=== PATIENT | male | born 1955 | race African-American/Black ===

== ENCOUNTER 2018-05-21 21:04 | Inpatient (IN) ==
[2018-05-22] MEDS ORDERED: ALBUTEROL 2.5 MG/3 ML NEB RESP TX PRN (01:24)
[2018-05-22] MEDS ORDERED: LORazepam 1 MG TABLET PO PRN (02:13)
[2018-05-22 02:20] LABS: INR 0.9; PT Patient Result 10.3 SECS
[2018-05-22 02:29] LABS: Basophils % 0.7 % (0.0-0.8); Eosinophils # 0.1 10*3/uL (0.0-0.87); Hematocrit 25.1 VOL% (42.0-52.0); Hemoglobin 7.6 GM/DL (14.0-18.0); Immature Granulocytes % 4.1 %; Immature Granulocytes Absolute 0.24 #; Lymphocytes # 0.8 10*3/uL (1.4-4.0); Lymphocytes % 13.1 % (21.2-54.2); Mean Corpuscular HGB Conc 30.3 GM/DL (32-36); Mean Corpuscular Hemoglobin 30 PG (27-34); Mean Corpuscular Volume 97.7 FL (87-102); Mean Platelet Volume 10.8 FL (9.6-12.0); Monocytes # 0.7 10*3/uL (0.11-0.8); Monocytes % 11.2 % (1.7-12.7); NRBC # 0.07 10*3/uL; Neutrophils # 4.1 10*3/uL (1.4-7.4); Neutrophils % 69.9 % (38.7-73.9); Platelet Count 324 T/CUMM (130-400); Red Blood Count 2.57 MC/CUMM (3.8-5.5); Red Cell Distribution Width 16.1 % (9.3-17.3); White Blood Count 5.8 T/CUMM (4-12)
[2018-05-22 02:41] LABS: Alanine Aminotransferase 9 U/L (16-61); Albumin 1.4 G/DL (3.4-5.0); Alkaline Phosphatase 73 U/L (45-117); Aspartate Amino Transferase 22 U/L (0-37); Bilirubin,Total < 0.39 MG/DL (0.2-1.0); Blood Urea Nitrogen 78 MG/DL (7-18); Glucose 65 MG/DL (74-106); Osmolality,Calculated 303.1 MOS/KG (273-304); Potassium 5.5 MMOL/L (3.5-5.1); Sodium 142 MMOL/L (136-145); Total Protein 5.7 G/DL (6.4-8.3)
[2018-05-22 02:50] LABS: Calcium 5.7 MG/DL (8.5-10.1)
[2018-05-22 05:24] LABS: Protein/Creatinine Ratio,Urine 7.6 RATIO
[2018-05-22 05:33] LABS: Amorphous Crystals,Urine Occasional /HPF (Few); Apearance,Urine CLOUDY (Clear); Bacteria,Urine Occasional /HPF (Few); Bilirubin,Urine Negative (Negative); Blood, Urine Moderate mg/dL (Negative); Glucose,Urine (UA) Negative (Negative); Hyaline Casts,Urine 3 /LPF (0-3); Ketones,Urine Negative (Negative); Nitrite,Urine Negative (Negative); Protein,Urine >=500 MG/DL; RBC,Urine 9 /HPF (0-4); Squamous Epithelial Cell,Urine Occasional /HPF (0-10); Urine Color Yellow (Yellow); Urine Specific Gravity 1.026 (1.001-1.035); Urine Urobilinogen < 2.0 EU/DL (0.2-1.0); WBC,Urine 8 /HPF (0-6)
[2018-05-22] MEDS: PANTOPRAZOLE 40 MG TABLET PO SCH (08:49)
[2018-05-22] MEDS: FOLIC ACID 1 MG TABLET PO SCH (08:49)
[2018-05-22] MEDS: SODIUM BICARBONATE 650 MG TABLET PO SCH ×3 (08:49→20:38)
[2018-05-22] MEDS: THIAMINE 100 MG TABLET PO SCH (08:49)
[2018-05-22] MEDS: MULTIVITAMIN (CENTRUM) TABLET PO SCH (08:50)
[2018-05-22 13:12] LABS: Microalbum/Creat Ratio Random 3571.4 RATIO (0-30)
[2018-05-22] MEDS ORDERED: hydrALAZINE 20 MG/1 ML VIAL IV ONE (13:50)
[2018-05-22] MEDS: amLODIPine 10 MG TABLET PO SCH (14:52)
[2018-05-22] MEDS: CALCIUM GLUCONATE 2,000 MG in SODIUM CHLORIDE 0.9% 100 ML IV PRN (15:11)
[2018-05-22] MEDS: SIMVASTATIN 20 MG TABLET PO SCH (20:38)
[2018-05-23 07:01] LABS: Hepatitis A Ab IgM Quant 0.21 Index; Hepatitis A Ab IgM Result Negative (Negative); Hepatitis B Core IgM Quant 0.13 Index; Hepatitis B Core IgM Result Negative (Negative); Hepatitis B Surface Ag Quant < 0.10 Index; Hepatitis B Surface Ag Result Negative (Negative); Hepatitis C Virus Ab Quant 0.09 Index; Hepatitis C Virus Ab Result Negative (Negative)
[2018-05-23 09:17] LABS: Basophils % 0.4 % (0.0-0.8); Eosinophils # 0.1 10*3/uL (0.0-0.87); Eosinophils % 0.8 % (0.00-10.9); Hematocrit 22.6 VOL% (42.0-52.0); Immature Granulocytes % 1.1 %; Immature Granulocytes Absolute 0.08 #; Lymphocytes # 0.6 10*3/uL (1.4-4.0); Lymphocytes % 8.6 % (21.2-54.2); Mean Corpuscular Hemoglobin 30 PG (27-34); Mean Platelet Volume 9.9 FL (9.6-12.0); Monocytes # 0.7 10*3/uL (0.11-0.8); Monocytes % 9.1 % (1.7-12.7); NRBC # 0.05 10*3/uL; Platelet Count 293 T/CUMM (130-400); Red Blood Count 2.33 MC/CUMM (3.8-5.5); Red Cell Distribution Width 16.1 % (9.3-17.3); White Blood Count 7.5 T/CUMM (4-12)
[2018-05-23] MEDS: FOLIC ACID 1 MG TABLET PO SCH (09:19)
[2018-05-23] MEDS: MULTIVITAMIN (CENTRUM) TABLET PO SCH (09:19)
[2018-05-23] MEDS: SODIUM BICARBONATE 650 MG TABLET PO SCH ×3 (09:19→22:01)
[2018-05-23] MEDS: PANTOPRAZOLE 40 MG TABLET PO SCH (09:19)
[2018-05-23] MEDS: amLODIPine 10 MG TABLET PO SCH ×2 (09:19)
[2018-05-23] MEDS: THIAMINE 100 MG TABLET PO SCH (09:19)
[2018-05-23] MEDS: ASPIRIN CHEW 81 MG TABLET PO SCH (09:19)
[2018-05-23 09:43] LABS: Alanine Aminotransferase < 9 U/L (16-61); Albumin 1.3 G/DL (3.4-5.0); Alkaline Phosphatase 65 U/L (45-117); Aspartate Amino Transferase 15 U/L (0-37); Bilirubin,Total < 0.39 MG/DL (0.2-1.0); Blood Urea Nitrogen 79 MG/DL (7-18); Glucose 109 MG/DL (74-106); Osmolality,Calculated 307.1 MOS/KG (273-304); Sodium 142 MMOL/L (136-145); Total Protein 5.5 G/DL (6.4-8.3)
[2018-05-23 09:47] LABS: Calcium 5.6 MG/DL (8.5-10.1)
[2018-05-23] MEDS ORDERED: ACETAMINOPHEN 325 MG TABLET PO PRN (12:46)
[2018-05-23] MEDS ORDERED: diphenhydrAMINE CAP 25 MG CAPSULE PO PRN (12:46)
[2018-05-23] MEDS ORDERED: SODIUM CHLORIDE 0.9% 1,000 ML IV PRN ×2 (12:46→17:31)
[2018-05-23] MEDS: ALBUMIN 25% 25 GM in PREMIX 1 EACH IV SCH ×2 (15:52→22:02)
[2018-05-23] MEDS: OCTREOTIDE 100 MCG/ML SYRINGE SUBCUT SCH ×2 (15:53→22:02)
[2018-05-23] MEDS: MIDODRINE 5 MG TABLET PO SCH ×2 (15:53→22:01)
[2018-05-23] MEDS ORDERED: FUROSEMIDE 40 MG/4 ML VIAL IV SCH (16:00)
[2018-05-23] MEDS: SIMVASTATIN 20 MG TABLET PO SCH (22:02)
[2018-05-24 06:06] LABS: Basophils % 0.3 % (0.0-0.8); Eosinophils % 0.3 % (0.00-10.9); Hematocrit 30.1 VOL% (42.0-52.0); Hemoglobin 9.3 GM/DL (14.0-18.0); Immature Granulocytes % 1.7 %; Immature Granulocytes Absolute 0.11 #; Lymphocytes # 0.9 10*3/uL (1.4-4.0); Lymphocytes % 13.4 % (21.2-54.2); Mean Corpuscular HGB Conc 30.9 GM/DL (32-36); Mean Corpuscular Hemoglobin 29 PG (27-34); Mean Corpuscular Volume 94.1 FL (87-102); Mean Platelet Volume 10.7 FL (9.6-12.0); Monocytes # 0.7 10*3/uL (0.11-0.8); Monocytes % 10.1 % (1.7-12.7); NRBC # 0.06 10*3/uL; Neutrophils # 4.9 10*3/uL (1.4-7.4); Neutrophils % 74.2 % (38.7-73.9); Platelet Count 290 T/CUMM (130-400); Red Cell Distribution Width 16.1 % (9.3-17.3); White Blood Count 6.6 T/CUMM (4-12)
[2018-05-24 06:39] LABS: Osmolality,Calculated 306.1 MOS/KG (273-304); Potassium 5.4 MMOL/L (3.5-5.1)
[2018-05-24 06:42] LABS: Calcium 5.5 MG/DL (8.5-10.1)
[2018-05-24] MEDS: ALBUMIN 25% 25 GM in PREMIX 1 EACH IV SCH ×3 (07:37→22:15)
[2018-05-24] MEDS: OCTREOTIDE 100 MCG/ML SYRINGE SUBCUT SCH ×3 (11:09→22:14)
[2018-05-24] MEDS: amLODIPine 10 MG TABLET PO SCH ×2 (11:10)
[2018-05-24] MEDS: SODIUM BICARBONATE 650 MG TABLET PO SCH ×3 (11:10→22:14)
[2018-05-24] MEDS: MULTIVITAMIN (CENTRUM) TABLET PO SCH (11:10)
[2018-05-24] MEDS: PANTOPRAZOLE 40 MG TABLET PO SCH (11:10)
[2018-05-24] MEDS: FOLIC ACID 1 MG TABLET PO SCH (11:10)
[2018-05-24] MEDS: ASPIRIN CHEW 81 MG TABLET PO SCH (11:10)
[2018-05-24] MEDS: MIDODRINE 5 MG TABLET PO SCH ×3 (11:10→22:15)
[2018-05-24] MEDS: THIAMINE 100 MG TABLET PO SCH (11:10)
[2018-05-24] MEDS: SIMVASTATIN 20 MG TABLET PO SCH (22:14)
[2018-05-25 04:55] LABS: Basophils % 0.3 % (0.0-0.8); Eosinophils # 0.1 10*3/uL (0.0-0.87); Eosinophils % 0.6 % (0.00-10.9); Hematocrit 26.1 VOL% (42.0-52.0); Immature Granulocytes % 1.6 %; Immature Granulocytes Absolute 0.15 #; Lymphocytes # 0.8 10*3/uL (1.4-4.0); Lymphocytes % 8.7 % (21.2-54.2); Mean Corpuscular HGB Conc 30.7 GM/DL (32-36); Mean Corpuscular Hemoglobin 29 PG (27-34); Mean Corpuscular Volume 94.6 FL (87-102); Mean Platelet Volume 11.1 FL (9.6-12.0); Monocytes # 0.8 10*3/uL (0.11-0.8); Monocytes % 8.4 % (1.7-12.7); NRBC # 0.08 10*3/uL; Neutrophils # 7.4 10*3/uL (1.4-7.4); Neutrophils % 80.4 % (38.7-73.9); Platelet Count 259 T/CUMM (130-400); Red Blood Count 2.76 MC/CUMM (3.8-5.5); Red Cell Distribution Width 16.8 % (9.3-17.3); White Blood Count 9.2 T/CUMM (4-12)
[2018-05-25] MEDS: ALBUMIN 25% 25 GM in PREMIX 1 EACH IV SCH ×2 (07:25→13:47)
[2018-05-25] MEDS ORDERED: SODIUM POLYSTYRENE SULFATE 15 GM/60 ML BOTTLE PO STA (08:12)
[2018-05-25] MEDS ORDERED: NICOTINE 21 MG/24 HR PATCH TRANSDERM PRN (08:14)
[2018-05-25] MEDS: MIDODRINE 5 MG TABLET PO SCH ×3 (08:53→22:32)
[2018-05-25] MEDS: ASPIRIN CHEW 81 MG TABLET PO SCH (08:53)
[2018-05-25] MEDS: SODIUM BICARBONATE 650 MG TABLET PO SCH ×3 (08:53→22:32)
[2018-05-25] MEDS: THIAMINE 100 MG TABLET PO SCH (08:54)
[2018-05-25] MEDS: FOLIC ACID 1 MG TABLET PO SCH (08:54)
[2018-05-25] MEDS: PANTOPRAZOLE 40 MG TABLET PO SCH (08:54)
[2018-05-25] MEDS: amLODIPine 10 MG TABLET PO SCH (08:54)
[2018-05-25] MEDS: OCTREOTIDE 100 MCG/ML SYRINGE SUBCUT SCH ×3 (08:54→22:32)
[2018-05-25] MEDS: MULTIVITAMIN (CENTRUM) TABLET PO SCH (08:54)
[2018-05-25] MEDS ORDERED: CALCIUM GLUCONATE 2,000 MG in SODIUM CHLORIDE 0.9% 100 ML IV ONE ×2 (09:00→17:00)
[2018-05-25 13:28] LABS: Osmolality,Calculated 311.8 MOS/KG (273-304); Potassium 4.8 MMOL/L (3.5-5.1)
[2018-05-25 13:33] LABS: Calcium 5.3 MG/DL (8.5-10.1)
[2018-05-25 16:26] LABS: % Iron Saturation 35.2 % (18-50)
[2018-05-25] MEDS: SIMVASTATIN 20 MG TABLET PO SCH (22:33)
[2018-05-26] MEDS: ALBUMIN 25% 25 GM in PREMIX 1 EACH IV SCH ×2 (00:39→05:21)
[2018-05-26 05:16] LABS: Basophils % 0.4 % (0.0-0.8); Eosinophils # 0.1 10*3/uL (0.0-0.87); Eosinophils % 0.6 % (0.00-10.9); Hematocrit 24.6 VOL% (42.0-52.0); Hemoglobin 7.6 GM/DL (14.0-18.0); Immature Granulocytes % 1.8 %; Immature Granulocytes Absolute 0.17 #; Lymphocytes # 0.6 10*3/uL (1.4-4.0); Lymphocytes % 6.5 % (21.2-54.2); Mean Corpuscular HGB Conc 30.9 GM/DL (32-36); Mean Corpuscular Hemoglobin 29 PG (27-34); Mean Corpuscular Volume 94.6 FL (87-102); Mean Platelet Volume 11.2 FL (9.6-12.0); Monocytes % 10.3 % (1.7-12.7); NRBC # 0.07 10*3/uL; Neutrophils # 7.7 10*3/uL (1.4-7.4); Neutrophils % 80.4 % (38.7-73.9); Platelet Count 258 T/CUMM (130-400); Red Cell Distribution Width 17.1 % (9.3-17.3); White Blood Count 9.6 T/CUMM (4-12)
[2018-05-26 05:44] LABS: Osmolality,Calculated 310.7 MOS/KG (273-304); Potassium 4.8 MMOL/L (3.5-5.1)
[2018-05-26 05:48] LABS: Calcium 5.5 MG/DL (8.5-10.1)
[2018-05-26] MEDS ORDERED: LIDOCAINE 2% 5 ML VIAL ONE (08:03)
[2018-05-26] MEDS ORDERED: PROPOFOL 200 MG/20 ML VIAL IV ONE (08:03)
[2018-05-26] MEDS ORDERED: SODIUM CHLORIDE 0.9% 1,000 ML IV PRN (09:03)
[2018-05-26] MEDS: amLODIPine 10 MG TABLET PO SCH (09:05)
[2018-05-26] MEDS ORDERED: CALCIUM GLUCONATE 2,000 MG in SODIUM CHLORIDE 0.9% 100 ML IV ONE (10:00)
[2018-05-26] MEDS: BISACODYL 5 MG TABLET PO SCH ×2 (10:40→16:03)
[2018-05-26] MEDS: ASPIRIN CHEW 81 MG TABLET PO SCH (10:41)
[2018-05-26] MEDS: PANTOPRAZOLE 40 MG TABLET PO SCH ×2 (10:41→22:03)
[2018-05-26] MEDS: SODIUM BICARBONATE 650 MG TABLET PO SCH ×3 (10:41→22:02)
[2018-05-26] MEDS: THIAMINE 100 MG TABLET PO SCH (10:41)
[2018-05-26] MEDS: MULTIVITAMIN (CENTRUM) TABLET PO SCH (10:41)
[2018-05-26] MEDS: CALCIUM (CARBONATE)/VITAMIN D 500 MG-200 UNIT TABLET PO SCH ×2 (10:41→22:02)
[2018-05-26] MEDS: FOLIC ACID 1 MG TABLET PO SCH (10:42)
[2018-05-26 14:15] LABS: Glomerular Basement Membrane A < 0.2 U; Myeloperoxidase Antibody < 0.2 U
[2018-05-26] MEDS: FUROSEMIDE 40 MG/4 ML VIAL IV SCH (16:02)
[2018-05-26] MEDS ORDERED: MAGNESIUM SULF RIDER 2 GM in PREMIX 1 EACH IV ONE (17:07)
[2018-05-26] MEDS ORDERED: POLYETHYLENE GLYCOL 3350/ELECTROLYTES 4,000 ML BOTTLE PO ONE (18:00)
[2018-05-26 20:06] LABS: Hematocrit 32.7 VOL% (42.0-52.0); Hemoglobin 10.4 GM/DL (14.0-18.0)
[2018-05-26] MEDS ORDERED: MAGNESIUM CITRATE 300 ML BOTTLE PO ONE (21:00)
[2018-05-26] MEDS: SIMVASTATIN 20 MG TABLET PO SCH (22:03)
[2018-05-27] MEDS: BISACODYL 5 MG TABLET PO SCH (00:39)
[2018-05-27 05:43] LABS: Basophils # 0.1 10*3/uL (0.0-0.2); Basophils % 0.5 % (0.0-0.8); Eosinophils # 0.1 10*3/uL (0.0-0.87); Eosinophils % 0.9 % (0.00-10.9); Hematocrit 32.3 VOL% (42.0-52.0); Hemoglobin 10.2 GM/DL (14.0-18.0); Immature Granulocytes % 1.4 %; Immature Granulocytes Absolute 0.14 #; Lymphocytes # 0.6 10*3/uL (1.4-4.0); Lymphocytes % 6.2 % (21.2-54.2); Mean Corpuscular HGB Conc 31.6 GM/DL (32-36); Mean Corpuscular Hemoglobin 29 PG (27-34); Mean Corpuscular Volume 91.2 FL (87-102); Mean Platelet Volume 11.3 FL (9.6-12.0); Monocytes # 1.1 10*3/uL (0.11-0.8); Monocytes % 11.5 % (1.7-12.7); NRBC # 0.05 10*3/uL; Neutrophils # 7.7 10*3/uL (1.4-7.4); Neutrophils % 79.5 % (38.7-73.9); Platelet Count 288 T/CUMM (130-400); Red Blood Count 3.54 MC/CUMM (3.8-5.5); Red Cell Distribution Width 17.6 % (9.3-17.3); White Blood Count 9.7 T/CUMM (4-12)
[2018-05-27 06:06] LABS: Osmolality,Calculated 308.7 MOS/KG (273-304); Potassium 4.3 MMOL/L (3.5-5.1)
[2018-05-27 06:13] LABS: Calcium 5.6 MG/DL (8.5-10.1)
[2018-05-27] MEDS ORDERED: MAGNESIUM SULF RIDER 2 GM in PREMIX 1 EACH IV ONE (08:27)
[2018-05-27] MEDS: CALCIUM GLUCONATE 2,000 MG in SODIUM CHLORIDE 0.9% 100 ML IV PRN (09:01)
[2018-05-27] MEDS: FUROSEMIDE 40 MG/4 ML VIAL IV SCH ×2 (09:39→17:28)
[2018-05-27] MEDS ORDERED: PROPOFOL 200 MG/20 ML VIAL IV ONE (10:00)
[2018-05-27] MEDS ORDERED: LIDOCAINE 100 MG/5 ML SYRINGE ONE (10:00)
[2018-05-27] MEDS: CALCIUM (CARBONATE)/VITAMIN D 500 MG-200 UNIT TABLET PO SCH ×2 (15:06→21:31)
[2018-05-27] MEDS: FOLIC ACID 1 MG TABLET PO SCH (15:06)
[2018-05-27] MEDS: MULTIVITAMIN (CENTRUM) TABLET PO SCH (15:06)
[2018-05-27] MEDS: amLODIPine 10 MG TABLET PO SCH (15:07)
[2018-05-27] MEDS: SODIUM BICARBONATE 650 MG TABLET PO SCH ×3 (15:07→21:31)
[2018-05-27] MEDS: ASPIRIN CHEW 81 MG TABLET PO SCH (15:07)
[2018-05-27] MEDS: THIAMINE 100 MG TABLET PO SCH (15:07)
[2018-05-27] MEDS: PANTOPRAZOLE 40 MG TABLET PO SCH ×2 (15:07→21:32)
[2018-05-27] MEDS ORDERED: LEVOFLOXACIN INJ 500 MG in PREMIX 1 EACH IV SCH (20:00)
[2018-05-27] MEDS: SIMVASTATIN 20 MG TABLET PO SCH (21:32)
[2018-05-28 04:40] LABS: Basophils % 0.4 % (0.0-0.8); Eosinophils # 0.1 10*3/uL (0.0-0.87); Eosinophils % 1.1 % (0.00-10.9); Hematocrit 32.3 VOL% (42.0-52.0); Hemoglobin 10.2 GM/DL (14.0-18.0); Immature Granulocytes % 1.6 %; Immature Granulocytes Absolute 0.12 #; Lymphocytes # 0.6 10*3/uL (1.4-4.0); Lymphocytes % 8.2 % (21.2-54.2); Mean Corpuscular HGB Conc 31.6 GM/DL (32-36); Mean Corpuscular Hemoglobin 29 PG (27-34); Mean Corpuscular Volume 90.5 FL (87-102); Mean Platelet Volume 10.7 FL (9.6-12.0); Monocytes # 0.7 10*3/uL (0.11-0.8); Monocytes % 9.8 % (1.7-12.7); NRBC # 0.04 10*3/uL; Neutrophils # 5.8 10*3/uL (1.4-7.4); Neutrophils % 78.9 % (38.7-73.9); Platelet Count 285 T/CUMM (130-400); Red Blood Count 3.57 MC/CUMM (3.8-5.5); Red Cell Distribution Width 17.7 % (9.3-17.3); White Blood Count 7.4 T/CUMM (4-12)
[2018-05-28 09:18] LABS: Calcium 6.1 MG/DL (8.5-10.1); Osmolality,Calculated 308.7 MOS/KG (273-304); Potassium 4.5 MMOL/L (3.5-5.1)
[2018-05-28] MEDS: amLODIPine 10 MG TABLET PO SCH (10:48)
[2018-05-28] MEDS: ASPIRIN CHEW 81 MG TABLET PO SCH (10:48)
[2018-05-28] MEDS: MULTIVITAMIN (CENTRUM) TABLET PO SCH (10:48)
[2018-05-28] MEDS: PANTOPRAZOLE 40 MG TABLET PO SCH ×2 (10:48→21:41)
[2018-05-28] MEDS: CALCIUM (CARBONATE)/VITAMIN D 500 MG-200 UNIT TABLET PO SCH ×2 (10:48→21:41)
[2018-05-28] MEDS: SODIUM BICARBONATE 650 MG TABLET PO SCH ×3 (10:48→21:41)
[2018-05-28] MEDS: THIAMINE 100 MG TABLET PO SCH (10:49)
[2018-05-28] MEDS: FOLIC ACID 1 MG TABLET PO SCH (10:49)
[2018-05-28] MEDS: FUROSEMIDE 40 MG/4 ML VIAL IV SCH ×2 (10:49→17:52)
[2018-05-28] MEDS: SIMVASTATIN 20 MG TABLET PO SCH (21:41)
[2018-05-29 04:36] LABS: Basophils % 0.4 % (0.0-0.8); Eosinophils # 0.2 10*3/uL (0.0-0.87); Eosinophils % 1.8 % (0.00-10.9); Hematocrit 29.9 VOL% (42.0-52.0); Hemoglobin 9.5 GM/DL (14.0-18.0); Immature Granulocytes Absolute 0.18 #; Lymphocytes # 0.8 10*3/uL (1.4-4.0); Lymphocytes % 8.8 % (21.2-54.2); Mean Corpuscular HGB Conc 31.8 GM/DL (32-36); Mean Corpuscular Hemoglobin 29 PG (27-34); Mean Corpuscular Volume 91.2 FL (87-102); Mean Platelet Volume 10.9 FL (9.6-12.0); Monocytes # 1.1 10*3/uL (0.11-0.8); NRBC # 0.06 10*3/uL; Neutrophils # 6.8 10*3/uL (1.4-7.4); Platelet Count 270 T/CUMM (130-400); Red Blood Count 3.28 MC/CUMM (3.8-5.5); Red Cell Distribution Width 17.6 % (9.3-17.3); White Blood Count 9.1 T/CUMM (4-12)
[2018-05-29] MEDS ORDERED: DIAZEPAM 5 MG TABLET PO ONE (07:45)
[2018-05-29 08:12] LABS: PT Patient Result 10.8 SECS; Partial Thromboplastin Time 31.9 SECS (0-40)
[2018-05-29] MEDS: FUROSEMIDE 40 MG/4 ML VIAL IV SCH (08:59)
[2018-05-29 12:12] VITALS: BP 139/81
[2018-05-29] MEDS: CALCIUM (CARBONATE)/VITAMIN D 500 MG-200 UNIT TABLET PO SCH (12:42)
[2018-05-29] MEDS: MULTIVITAMIN (CENTRUM) TABLET PO SCH (12:42)
[2018-05-29] MEDS: SODIUM BICARBONATE 650 MG TABLET PO SCH (12:42)
[2018-05-29] MEDS: PANTOPRAZOLE 40 MG TABLET PO SCH (12:43)
[2018-05-29] MEDS: ASPIRIN CHEW 81 MG TABLET PO SCH (12:43)
[2018-05-29] MEDS: THIAMINE 100 MG TABLET PO SCH (12:43)
[2018-05-29] MEDS: amLODIPine 10 MG TABLET PO SCH (12:43)
[2018-05-29] MEDS: FOLIC ACID 1 MG TABLET PO SCH (12:43)
[2018-06-01 07:33] LABS: Total Protein (Chem) 5.6 G/DL (6.4-8.3)
[2018-06-01 10:11] LABS: Albumin (SPE) 2.5 G/DL (3.2-5.3); Albumin (SPE) Rel % 45.9 %; Alpha 1 (SPE) 0.4 G/DL (0.1-0.4); Alpha 1 (SPE) Rel % 6.8 %; Alpha 2 (SPE) 1.2 G/DL (0.4-1.0); Alpha 2 (SPE) Rel % 20.6 %; Beta (SPE) 0.7 G/DL (0.5-1.1); Beta (SPE) Rel % 12.8 %; Gamma (SPE) 0.8 G/DL (0.7-1.7); Gamma (SPE) Rel % 13.9 %
== END 2018-05-29 15:09 | disposition home or self-care (01) | DRG 682 ==
LOC: N.ICU 05-22 00:02 → SUATTDRO 05-22 00:02 → N.2E 05-22 16:18
PROVIDERS: ADMIT Internal Medicine; ATTEND Internal Medicine

== ENCOUNTER 2018-06-16 12:29 | Inpatient (IN) ==
[2018-06-16] MEDS ORDERED: DEXTROSE 50% 25 GM/50 ML VIAL IV STA (12:50)
[2018-06-16] MEDS ORDERED: DEXTROSE 50% 25 GM/50 ML SYRINGE IV ONE (12:53)
[2018-06-16] MEDS: DEXTROSE 5% 1,000 ML IV SCH (13:20)
[2018-06-16 14:17] LABS: Basophils % 0.3 % (0.0-0.8); Eosinophils % 0.5 % (0.00-10.9); Hematocrit 26.4 VOL% (42.0-52.0); Hemoglobin 7.9 GM/DL (14.0-18.0); Immature Granulocytes Absolute 0.36 #; Lymphocytes # 0.3 10*3/uL (1.4-4.0); Lymphocytes % 5.3 % (21.2-54.2); Mean Corpuscular HGB Conc 29.9 GM/DL (32-36); Mean Corpuscular Hemoglobin 28 PG (27-34); Mean Platelet Volume 11.7 FL (9.6-12.0); Monocytes # 0.5 10*3/uL (0.11-0.8); Monocytes % 8.3 % (1.7-12.7); NRBC # 0.45 10*3/uL; Neutrophils # 4.8 10*3/uL (1.4-7.4); Neutrophils % 79.6 % (38.7-73.9); Platelet Count 228 T/CUMM (130-400); Red Blood Count 2.81 MC/CUMM (3.8-5.5); Red Cell Distribution Width 19.3 % (9.3-17.3)
[2018-06-16 14:38] LABS: Albumin 1.9 G/DL (3.4-5.0); Bilirubin,Total 0.7 MG/DL (0.2-1.0); Osmolality,Calculated 321.6 MOS/KG (273-304); Potassium 5.8 MMOL/L (3.5-5.1); Total Protein 6.4 G/DL (6.4-8.3)
[2018-06-16 14:40] LABS: Calcium 5.4 MG/DL (8.5-10.1)
[2018-06-16 14:49] LABS: Giant Platelets Moderate; Lymphocytes 3 % (20-55); Polychromasia Few; Segmented Neutrophils 93 % (50-85)
[2018-06-16 14:50] LABS: Anisocytosis 1+; Target Cells Few; Tear Drop Cells Few
[2018-06-16 14:56] LABS: Total Cells Counted 100
[2018-06-16] MEDS ORDERED: ONDANSETRON 4 MG/2 ML VIAL IV PRN (17:01)
[2018-06-16] MEDS ORDERED: DEXTROSE 10% 1,000 ML IV SCH (17:30)
[2018-06-16] MEDS ORDERED: INFLUENZA VIRUS VACCINE 0.5 ML SYRINGE IM ONE (18:46)
[2018-06-16] MEDS ORDERED: PNEUMOCOCCAL VACCINE (13 VALENT) 0.5 ML SYRINGE IM ONE (18:47)
[2018-06-16] MEDS: FUROSEMIDE 40 MG/4 ML VIAL IV SCH (21:12)
[2018-06-16] MEDS: CALCIUM (CARBONATE)/VITAMIN D 500 MG-200 UNIT TABLET PO SCH (21:15)
[2018-06-16] MEDS: SIMVASTATIN 20 MG TABLET PO SCH (21:15)
[2018-06-17 05:18] LABS: Basophils % 0.4 % (0.0-0.8); Eosinophils # 0.1 10*3/uL (0.0-0.87); Eosinophils % 1.5 % (0.00-10.9); Hematocrit 23.6 VOL% (42.0-52.0); Hemoglobin 7.2 GM/DL (14.0-18.0); Immature Granulocytes % 4.9 %; Immature Granulocytes Absolute 0.27 #; Lymphocytes # 0.4 10*3/uL (1.4-4.0); Lymphocytes % 6.5 % (21.2-54.2); Mean Corpuscular HGB Conc 30.5 GM/DL (32-36); Mean Corpuscular Hemoglobin 28 PG (27-34); Mean Corpuscular Volume 92.5 FL (87-102); Mean Platelet Volume 11.5 FL (9.6-12.0); Monocytes # 0.6 10*3/uL (0.11-0.8); Monocytes % 10.4 % (1.7-12.7); NRBC # 0.64 10*3/uL; Neutrophils # 4.2 10*3/uL (1.4-7.4); Neutrophils % 76.3 % (38.7-73.9); Platelet Count 200 T/CUMM (130-400); Red Blood Count 2.55 MC/CUMM (3.8-5.5); Red Cell Distribution Width 19.3 % (9.3-17.3); White Blood Count 5.5 T/CUMM (4-12)
[2018-06-17 05:32] LABS: Osmolality,Calculated 321.6 MOS/KG (273-304); Potassium 5.7 MMOL/L (3.5-5.1); Risk Ratio 3.32; VLDL CHOLESTEROL 39.6 MG/DL
[2018-06-17 05:39] LABS: Calcium 5.2 MG/DL (8.5-10.1)
[2018-06-17 06:15] LABS: Eosinophils 3 % (0-10); Lymphocytes 7 % (20-55); Nucleated Red Blood Cells 18 (0-5); Platelet Estimate Normal; Polychromasia Few; Segmented Neutrophils 81 % (50-85); Total Cells Counted 100
[2018-06-17] MEDS: FUROSEMIDE 40 MG/4 ML VIAL IV SCH (08:58)
[2018-06-17] MEDS: DEXTROSE 5% 1,000 ML IV SCH (09:03)
[2018-06-17] MEDS ORDERED: CALCIUM GLUCONATE 2,000 MG in SODIUM CHLORIDE 0.9% 100 ML IV ONE (10:19)
[2018-06-17] MEDS ORDERED: MAGNESIUM SULF RIDER 2 GM in PREMIX 1 EACH IV ONE (10:20)
[2018-06-17] MEDS ORDERED: SODIUM CHLORIDE 0.9% 1,000 ML IV PRN ×2 (10:33→14:11)
[2018-06-17] MEDS ORDERED: FUROSEMIDE 40 MG/4 ML VIAL IV ONE (10:34)
[2018-06-17] MEDS: CALCIUM (CARBONATE)/VITAMIN D 500 MG-200 UNIT TABLET PO SCH ×2 (10:47→20:26)
[2018-06-17] MEDS: PANTOPRAZOLE 40 MG TABLET PO SCH (10:47)
[2018-06-17] MEDS ORDERED: ALBUTEROL/IPRATROPIUM 3 ML NEB RESP TX PRN (10:58)
[2018-06-17] MEDS ORDERED: SODIUM BICARB INJ 50 MEQ in DEXTROSE 5% 1,000 ML IV SCH (11:00)
[2018-06-17 11:23] LABS: CKMB % 1.6 %
[2018-06-17] MEDS: amLODIPine 10 MG TABLET PO SCH (11:23)
[2018-06-17 11:24] LABS: Troponin I 0.064 NG/ML (0.00-0.045)
[2018-06-17] MEDS: OMEGA 3 ACID ETHYL ESTERS 1 GM CAPSULE PO SCH ×2 (11:25→20:27)
[2018-06-17] MEDS: LEVOFLOXACIN INJ 500 MG in PREMIX 1 EACH IV SCH (11:31)
[2018-06-17 14:34] LABS: PT Patient Result 10.8 SECS; Partial Thromboplastin Time 36.6 SECS (0-40)
[2018-06-17] MEDS ORDERED: EPOETIN ALFA 10,000 UNIT/1 ML VIAL IV PRN (14:41)
[2018-06-17 15:02] LABS: Hepatitis A Ab IgM Quant 0.17 Index; Hepatitis A Ab IgM Result Negative (Negative); Hepatitis B Core IgM Quant 0.15 Index; Hepatitis B Core IgM Result Negative (Negative); Hepatitis B Surface Ag Quant < 0.10 Index; Hepatitis B Surface Ag Result Negative (Negative); Hepatitis C Virus Ab Quant 0.04 Index; Hepatitis C Virus Ab Result Negative (Negative)
[2018-06-17] MEDS: CALCITRIOL 0.5 MCG CAPSULE PO SCH (17:07)
[2018-06-17] MEDS: SODIUM POLYSTYRENE SULFATE 15 GM/60 ML BOTTLE PO ONE ×2 (17:08→18:04)
[2018-06-17] MEDS: SODIUM BICARB INJ 150 MEQ in DEXTROSE 5% 850 ML IV SCH (17:09)
[2018-06-17 17:32] LABS: Osmolality,Calculated 318.8 MOS/KG (273-304); Potassium 5.9 MMOL/L (3.5-5.1)
[2018-06-17 17:34] LABS: Calcium 5.3 MG/DL (8.5-10.1)
[2018-06-17] MEDS: SIMVASTATIN 20 MG TABLET PO SCH (20:26)
[2018-06-17] MEDS: ALBUMIN 25% 25 GM in PREMIX 1 EACH IV SCH (21:04)
[2018-06-18] MEDS: SODIUM BICARB INJ 150 MEQ in DEXTROSE 5% 850 ML IV SCH ×3 (02:40→20:57)
[2018-06-18 04:44] LABS: Basophils % 0.2 % (0.0-0.8); Eosinophils # 0.1 10*3/uL (0.0-0.87); Eosinophils % 2.4 % (0.00-10.9); Hematocrit 22.1 VOL% (42.0-52.0); Hemoglobin 6.7 GM/DL (14.0-18.0); Lymphocytes # 0.3 10*3/uL (1.4-4.0); Mean Corpuscular HGB Conc 30.3 GM/DL (32-36); Mean Corpuscular Hemoglobin 28 PG (27-34); Mean Corpuscular Volume 92.5 FL (87-102); Mean Platelet Volume 11.5 FL (9.6-12.0); Monocytes # 0.6 10*3/uL (0.11-0.8); Monocytes % 11.3 % (1.7-12.7); NRBC # 0.68 10*3/uL; Neutrophils # 3.7 10*3/uL (1.4-7.4); Neutrophils % 74.1 % (38.7-73.9); Platelet Count 177 T/CUMM (130-400); Red Blood Count 2.39 MC/CUMM (3.8-5.5); Red Cell Distribution Width 19.5 % (9.3-17.3)
[2018-06-18 05:05] LABS: CKMB % 1.6 %
[2018-06-18 05:07] LABS: Band Neutrophils 1 % (0-10); Eosinophils 4 % (0-10); Hypochromasia 1+; Lymphocytes 7 % (20-55); Nucleated Red Blood Cells 10 (0-5); Ovalocytes Slight; Platelet Estimate Adequate; Segmented Neutrophils 79 % (50-85); Total Cells Counted 100; Troponin I 0.053 NG/ML (0.00-0.045)
[2018-06-18] MEDS: LEVOTHYROXINE 137 MCG TABLET PO SCH (06:37)
[2018-06-18 06:49] LABS: Blood Urea Nitrogen 106 MG/DL (7-18); Glucose 89 MG/DL (74-106); Osmolality,Calculated 321.6 MOS/KG (273-304); Potassium 5.4 MMOL/L (3.5-5.1); Sodium 146 MMOL/L (136-145)
[2018-06-18 06:56] LABS: Calcium < 5.0 MG/DL (8.5-10.1)
[2018-06-18] MEDS ORDERED: ceFAZolin 1,000 MG in SYRINGE 1 EACH IV ONE (07:00)
[2018-06-18] MEDS: ASPIRIN EC 325 MG TABLET PO SCH (08:56)
[2018-06-18] MEDS: amLODIPine 10 MG TABLET PO SCH (08:56)
[2018-06-18] MEDS: HEPARIN 5,000 UNIT/1 ML VIAL SUBCUT SCH ×2 (08:56→20:54)
[2018-06-18] MEDS: CALCIUM (CARBONATE)/VITAMIN D 500 MG-200 UNIT TABLET PO SCH ×2 (08:56→20:58)
[2018-06-18] MEDS: CALCITRIOL 0.5 MCG CAPSULE PO SCH (08:57)
[2018-06-18] MEDS: PANTOPRAZOLE 40 MG TABLET PO SCH (08:57)
[2018-06-18] MEDS: OMEGA 3 ACID ETHYL ESTERS 1 GM CAPSULE PO SCH ×2 (08:57→20:58)
[2018-06-18] MEDS ORDERED: CALCIUM GLUCONATE 2,000 MG in SODIUM CHLORIDE 0.9% 100 ML IV ONE (09:00)
[2018-06-18] MEDS: ALBUMIN 25% 25 GM in PREMIX 1 EACH IV SCH ×2 (09:16→20:53)
[2018-06-18] MEDS ORDERED: HEPARIN 5,000 UNIT/1 ML VIAL ONE (11:20)
[2018-06-18] MEDS ORDERED: LIDOCAINE 1%/EPI INJ 20 ML VIAL ONE (11:21)
[2018-06-18] MEDS ORDERED: HEPARIN 10,000 UNIT/10 ML VIAL IV PRN (14:12)
[2018-06-18] MEDS: CARVEDILOL 3.125 MG TABLET PO SCH (20:58)
[2018-06-18] MEDS: ATORVASTATIN 40 MG TABLET PO SCH (20:58)
[2018-06-18] MEDS ORDERED: METOPROLOL TARTRATE 25 MG TABLET PO SCH (21:00)
[2018-06-19 06:15] LABS: Basophils % 0.6 % (0.0-0.8); Eosinophils # 0.1 10*3/uL (0.0-0.87); Eosinophils % 1.1 % (0.00-10.9); Immature Granulocytes % 5.1 %; Immature Granulocytes Absolute 0.27 #; Lymphocytes # 0.2 10*3/uL (1.4-4.0); Lymphocytes % 4.2 % (21.2-54.2); Mean Corpuscular HGB Conc 30.4 GM/DL (32-36); Mean Corpuscular Hemoglobin 28 PG (27-34); Mean Corpuscular Volume 91.2 FL (87-102); Mean Platelet Volume 11.1 FL (9.6-12.0); Monocytes # 0.6 10*3/uL (0.11-0.8); Monocytes % 10.6 % (1.7-12.7); NRBC # 0.88 10*3/uL; Neutrophils # 4.2 10*3/uL (1.4-7.4); Neutrophils % 78.4 % (38.7-73.9); Platelet Count 110 T/CUMM (130-400); Red Cell Distribution Width 18.2 % (9.3-17.3); White Blood Count 5.3 T/CUMM (4-12)
[2018-06-19 06:31] LABS: Red Blood Count 2.96 MC/CUMM (3.8-5.5)
[2018-06-19 06:32] LABS: Hemoglobin 8.2 GM/DL (14.0-18.0)
[2018-06-19 06:39] LABS: Albumin 2.3 G/DL (3.4-5.0); Osmolality,Calculated 309.7 MOS/KG (273-304); Potassium 4.9 MMOL/L (3.5-5.1)
[2018-06-19 06:41] LABS: Eosinophils 2 % (0-10); Lymphocytes 6 % (20-55); Metamyelocytes 6 %; Myelocytes 2 %; Nucleated Red Blood Cells 24 (0-5); Platelet Estimate Decreased; Promyelocytes 2 %; Segmented Neutrophils 74 % (50-85); Total Cells Counted 100
[2018-06-19 06:42] LABS: Anisocytosis 2+; Calcium 5.2 MG/DL (8.5-10.1); Macrocytosis 1+; Microcytosis 1+; Ovalocytes 1+
[2018-06-19] MEDS: SODIUM BICARB INJ 150 MEQ in DEXTROSE 5% 850 ML IV SCH (07:12)
[2018-06-19] MEDS: LEVOTHYROXINE 137 MCG TABLET PO SCH (07:13)
[2018-06-19] MEDS ORDERED: DEXTROSE 50% 25 GM/50 ML SYRINGE IV ONE (07:31)
[2018-06-19] MEDS: DEXTROSE 50% 25 GM/50 ML SYRINGE IV PRN ×3 (07:35→17:15)
[2018-06-19] MEDS: PANTOPRAZOLE 40 MG TABLET PO SCH (09:27)
[2018-06-19] MEDS: CALCITRIOL 0.5 MCG CAPSULE PO SCH (09:27)
[2018-06-19] MEDS: amLODIPine 10 MG TABLET PO SCH (09:27)
[2018-06-19] MEDS: CALCIUM (CARBONATE)/VITAMIN D 500 MG-200 UNIT TABLET PO SCH ×2 (09:27→22:08)
[2018-06-19] MEDS: CARVEDILOL 3.125 MG TABLET PO SCH ×2 (09:27→22:08)
[2018-06-19] MEDS: ASPIRIN EC 325 MG TABLET PO SCH (09:27)
[2018-06-19] MEDS: OMEGA 3 ACID ETHYL ESTERS 1 GM CAPSULE PO SCH ×2 (09:27→22:09)
[2018-06-19] MEDS: ALBUMIN 25% 25 GM in PREMIX 1 EACH IV SCH ×2 (09:31→21:56)
[2018-06-19] MEDS: HEPARIN 5,000 UNIT/1 ML VIAL SUBCUT SCH ×2 (09:31→21:57)
[2018-06-19] MEDS: LEVOFLOXACIN INJ 500 MG in PREMIX 1 EACH IV SCH (09:32)
[2018-06-19] MEDS: NITROGLYCERIN 2% OINT 1 INCH/GM PACK TOP SCH ×2 (12:43→17:23)
[2018-06-19] MEDS: INSULIN REGULAR 100 UNIT/ML SUBCUT SCH (17:23)
[2018-06-19] MEDS: ATORVASTATIN 40 MG TABLET PO SCH (22:08)
[2018-06-20] MEDS: NITROGLYCERIN 2% OINT 1 INCH/GM PACK TOP SCH ×4 (04:01→18:10)
[2018-06-20 05:01] LABS: Basophils % 0.4 % (0.0-0.8); Eosinophils # 0.1 10*3/uL (0.0-0.87); Eosinophils % 1.1 % (0.00-10.9); Hematocrit 24.2 VOL% (42.0-52.0); Hemoglobin 7.2 GM/DL (14.0-18.0); Immature Granulocytes % 4.4 %; Immature Granulocytes Absolute 0.23 #; Lymphocytes # 0.2 10*3/uL (1.4-4.0); Lymphocytes % 3.8 % (21.2-54.2); Mean Corpuscular HGB Conc 29.8 GM/DL (32-36); Mean Corpuscular Hemoglobin 27 PG (27-34); Mean Platelet Volume 12.4 FL (9.6-12.0); Monocytes # 0.6 10*3/uL (0.11-0.8); NRBC # 0.87 10*3/uL; Neutrophils # 4.1 10*3/uL (1.4-7.4); Neutrophils % 78.3 % (38.7-73.9); Platelet Count 109 T/CUMM (130-400); Red Blood Count 2.63 MC/CUMM (3.8-5.5); Red Cell Distribution Width 18.3 % (9.3-17.3); White Blood Count 5.2 T/CUMM (4-12)
[2018-06-20 05:27] LABS: Calcium 5.9 MG/DL (8.5-10.1); Osmolality,Calculated 294.1 MOS/KG (273-304)
[2018-06-20 05:37] LABS: Albumin 2.4 G/DL (3.4-5.0); Potassium 4.1 MMOL/L (3.5-5.1)
[2018-06-20 05:38] LABS: Calcium 5.6 MG/DL (8.5-10.1)
[2018-06-20 05:50] LABS: Band Neutrophils 4 % (0-10); Lymphocytes 15 % (20-55); Myelocytes 1 %; Nucleated Red Blood Cells 27 (0-5); Segmented Neutrophils 72 % (50-85); Total Cells Counted 100
[2018-06-20 05:51] LABS: Anisocytosis 1+; Hypochromasia 1+; Ovalocytes Few; Platelet Estimate Adequate; Target Cells 1+
[2018-06-20] MEDS: INSULIN REGULAR 100 UNIT/ML SUBCUT SCH ×4 (07:39→18:28)
[2018-06-20] MEDS: CALCITRIOL 0.5 MCG CAPSULE PO SCH (08:51)
[2018-06-20] MEDS: ASPIRIN EC 325 MG TABLET PO SCH (08:51)
[2018-06-20] MEDS: OMEGA 3 ACID ETHYL ESTERS 1 GM CAPSULE PO SCH ×2 (08:51→21:01)
[2018-06-20] MEDS: CALCIUM (CARBONATE)/VITAMIN D 500 MG-200 UNIT TABLET PO SCH ×2 (08:51→21:01)
[2018-06-20] MEDS: CARVEDILOL 3.125 MG TABLET PO SCH ×2 (08:51→21:01)
[2018-06-20] MEDS: PANTOPRAZOLE 40 MG TABLET PO SCH (08:51)
[2018-06-20] MEDS: LEVOTHYROXINE 137 MCG TABLET PO SCH (08:51)
[2018-06-20] MEDS: amLODIPine 10 MG TABLET PO SCH (08:51)
[2018-06-20] MEDS: HEPARIN 5,000 UNIT/1 ML VIAL SUBCUT SCH ×2 (08:51→21:02)
[2018-06-20] MEDS: ALBUMIN 25% 25 GM in PREMIX 1 EACH IV SCH ×3 (09:45→17:11)
[2018-06-20 17:08] LABS: Apearance,Urine CLOUDY (Clear); Bilirubin,Urine Negative (Negative); Blood, Urine Moderate mg/dL (Negative); Glucose,Urine (UA) 50 mg/dL (Negative); Hyaline Casts,Urine 41 /LPF (0-3); Ketones,Urine Negative (Negative); Mucus,Urine Occasional /LPF (Occasional); Nitrite,Urine Negative (Negative); Protein,Urine >=500 MG/DL; RBC,Urine 60 /HPF (0-4); Squamous Epithelial Cell,Urine Occasional /HPF (0-10); Urine Color Amber (Yellow); Urine Specific Gravity 1.042 (1.001-1.035); Urine Urobilinogen < 2.0 EU/DL (0.2-1.0); WBC,Urine 48 /HPF (0-6)
[2018-06-20] MEDS: ATORVASTATIN 40 MG TABLET PO SCH (21:01)
[2018-06-20] MEDS: FERROUS SULFATE ER 140 MG TABLET PO SCH (21:01)
[2018-06-21] MEDS: INSULIN REGULAR 100 UNIT/ML SUBCUT SCH ×4 (00:11→18:41)
[2018-06-21] MEDS: NITROGLYCERIN 2% OINT 1 INCH/GM PACK TOP SCH ×4 (00:18→18:47)
[2018-06-21] MEDS: ALBUMIN 25% 25 GM in PREMIX 1 EACH IV SCH ×2 (05:24→18:03)
[2018-06-21] MEDS: LEVOTHYROXINE 137 MCG TABLET PO SCH (07:36)
[2018-06-21] MEDS: ASPIRIN EC 325 MG TABLET PO SCH (09:59)
[2018-06-21] MEDS: CALCITRIOL 0.5 MCG CAPSULE PO SCH (10:00)
[2018-06-21] MEDS: CARVEDILOL 3.125 MG TABLET PO SCH ×2 (10:00→20:43)
[2018-06-21] MEDS: PANTOPRAZOLE 40 MG TABLET PO SCH (10:00)
[2018-06-21] MEDS: amLODIPine 10 MG TABLET PO SCH (10:00)
[2018-06-21] MEDS: CALCIUM (CARBONATE)/VITAMIN D 500 MG-200 UNIT TABLET PO SCH ×2 (10:00→20:43)
[2018-06-21] MEDS: FERROUS SULFATE ER 140 MG TABLET PO SCH ×2 (10:00→20:43)
[2018-06-21] MEDS: OMEGA 3 ACID ETHYL ESTERS 1 GM CAPSULE PO SCH ×2 (10:00→20:43)
[2018-06-21] MEDS: HEPARIN 5,000 UNIT/1 ML VIAL SUBCUT SCH ×2 (10:41→20:40)
[2018-06-21] MEDS: LEVOFLOXACIN INJ 500 MG in PREMIX 1 EACH IV SCH (11:03)
[2018-06-21] MEDS: NICOTINE 21 MG/24 HR PATCH TRANSDERM PRN (12:25)
[2018-06-21] MEDS: ATORVASTATIN 40 MG TABLET PO SCH (20:43)
[2018-06-22] MEDS: GLUCAGON 1 MG VIAL IM PRN ×2 (00:43→04:29)
[2018-06-22] MEDS: NITROGLYCERIN 2% OINT 1 INCH/GM PACK TOP SCH ×4 (00:50→17:52)
[2018-06-22] MEDS: INSULIN REGULAR 100 UNIT/ML SUBCUT SCH ×4 (00:51→17:38)
[2018-06-22 05:21] LABS: Calcium 6.8 MG/DL (8.5-10.1); Osmolality,Calculated 285.5 MOS/KG (273-304)
[2018-06-22] MEDS: ALBUMIN 25% 25 GM in PREMIX 1 EACH IV SCH ×2 (05:32→17:52)
[2018-06-22] MEDS: LEVOTHYROXINE 137 MCG TABLET PO SCH (06:03)
[2018-06-22] MEDS: DEXTROSE 50% 25 GM/50 ML SYRINGE IV PRN ×2 (06:26→17:52)
[2018-06-22] MEDS ORDERED: ceFAZolin 1,000 MG in SYRINGE 1 EACH IV ONE (08:40)
[2018-06-22] MEDS ORDERED: ceFAZolin 1,000 MG VIAL ONE (08:44)
[2018-06-22] MEDS ORDERED: PROPOFOL 200 MG/20 ML VIAL IV ONE (10:00)
[2018-06-22] MEDS ORDERED: LIDOCAINE 2% 5 ML VIAL ONE (10:00)
[2018-06-22] MEDS: LEVOFLOXACIN 500 MG TABLET PO SCH (11:44)
[2018-06-22] MEDS: CALCIUM (CARBONATE)/VITAMIN D 500 MG-200 UNIT TABLET PO SCH ×2 (11:44→21:07)
[2018-06-22] MEDS: FERROUS SULFATE ER 140 MG TABLET PO SCH ×2 (11:45→21:07)
[2018-06-22] MEDS: OMEGA 3 ACID ETHYL ESTERS 1 GM CAPSULE PO SCH ×2 (11:45→21:07)
[2018-06-22] MEDS: PANTOPRAZOLE 40 MG TABLET PO SCH (11:45)
[2018-06-22] MEDS: ASPIRIN EC 325 MG TABLET PO SCH (11:45)
[2018-06-22] MEDS: amLODIPine 10 MG TABLET PO SCH (11:45)
[2018-06-22] MEDS: CARVEDILOL 3.125 MG TABLET PO SCH (11:45)
[2018-06-22] MEDS: CALCITRIOL 0.5 MCG CAPSULE PO SCH (11:45)
[2018-06-22] MEDS: HEPARIN 5,000 UNIT/1 ML VIAL SUBCUT SCH ×2 (11:45→21:20)
[2018-06-22] MEDS: NICOTINE 21 MG/24 HR PATCH TRANSDERM PRN (14:27)
[2018-06-22] MEDS: CARVEDILOL 6.25 MG TABLET PO SCH (21:07)
[2018-06-22] MEDS: ATORVASTATIN 40 MG TABLET PO SCH (21:07)
[2018-06-23] MEDS: INSULIN REGULAR 100 UNIT/ML SUBCUT SCH ×4 (01:24→17:13)
[2018-06-23] MEDS: NITROGLYCERIN 2% OINT 1 INCH/GM PACK TOP SCH ×5 (01:28→23:14)
[2018-06-23] MEDS: ALBUMIN 25% 25 GM in PREMIX 1 EACH IV SCH ×2 (05:10→17:18)
[2018-06-23 05:40] LABS: Basophils % 0.6 % (0.0-0.8); Eosinophils # 0.1 10*3/uL (0.0-0.87); Eosinophils % 2.5 % (0.00-10.9); Hematocrit 21.9 VOL% (42.0-52.0); Hemoglobin 6.5 GM/DL (14.0-18.0); Immature Granulocytes Absolute 0.11 #; Lymphocytes # 0.4 10*3/uL (1.4-4.0); Lymphocytes % 10.7 % (21.2-54.2); Mean Corpuscular HGB Conc 29.7 GM/DL (32-36); Mean Corpuscular Hemoglobin 28 PG (27-34); Mean Corpuscular Volume 94.4 FL (87-102); Mean Platelet Volume 11.7 FL (9.6-12.0); Monocytes # 0.5 10*3/uL (0.11-0.8); Monocytes % 14.3 % (1.7-12.7); NRBC # 0.17 10*3/uL; Neutrophils # 2.5 10*3/uL (1.4-7.4); Neutrophils % 68.9 % (38.7-73.9); Platelet Count 124 T/CUMM (130-400); Red Blood Count 2.32 MC/CUMM (3.8-5.5); Red Cell Distribution Width 17.4 % (9.3-17.3); White Blood Count 3.6 T/CUMM (4-12)
[2018-06-23 05:47] LABS: Osmolality,Calculated 285.7 MOS/KG (273-304); Potassium 4.2 MMOL/L (3.5-5.1)
[2018-06-23 06:08] LABS: Hypochromasia 2+; Platelet Estimate Normal
[2018-06-23] MEDS: LEVOTHYROXINE 137 MCG TABLET PO SCH (06:16)
[2018-06-23] MEDS: HEPARIN 5,000 UNIT/1 ML VIAL SUBCUT SCH ×2 (08:31→20:39)
[2018-06-23] MEDS: OMEGA 3 ACID ETHYL ESTERS 1 GM CAPSULE PO SCH ×2 (08:31→20:37)
[2018-06-23] MEDS: CARVEDILOL 6.25 MG TABLET PO SCH ×2 (08:31→20:37)
[2018-06-23] MEDS: ASPIRIN EC 325 MG TABLET PO SCH (08:31)
[2018-06-23] MEDS: FERROUS SULFATE ER 140 MG TABLET PO SCH ×2 (08:31→20:37)
[2018-06-23] MEDS: CALCIUM (CARBONATE)/VITAMIN D 500 MG-200 UNIT TABLET PO SCH ×2 (08:31→20:37)
[2018-06-23] MEDS: amLODIPine 10 MG TABLET PO SCH (08:33)
[2018-06-23] MEDS: PANTOPRAZOLE 40 MG TABLET PO SCH (08:33)
[2018-06-23] MEDS: CALCITRIOL 0.5 MCG CAPSULE PO SCH (08:33)
[2018-06-23] MEDS: POLYETHYLENE GLYCOL POWDER 17 GM PACK PO SCH (13:44)
[2018-06-23] MEDS: ATORVASTATIN 40 MG TABLET PO SCH (20:37)
[2018-06-24] MEDS: INSULIN REGULAR 100 UNIT/ML SUBCUT SCH ×4 (00:36→18:09)
[2018-06-24] MEDS: ALBUMIN 25% 25 GM in PREMIX 1 EACH IV SCH ×2 (04:04→17:04)
[2018-06-24 04:44] LABS: Basophils % 0.2 % (0.0-0.8); Eosinophils # 0.1 10*3/uL (0.0-0.87); Immature Granulocytes % 2.1 %; Lymphocytes # 0.5 10*3/uL (1.4-4.0); Lymphocytes % 10.6 % (21.2-54.2); Mean Corpuscular HGB Conc 29.5 GM/DL (32-36); Mean Corpuscular Hemoglobin 28 PG (27-34); Mean Corpuscular Volume 93.6 FL (87-102); Mean Platelet Volume 11.6 FL (9.6-12.0); Monocytes # 0.7 10*3/uL (0.11-0.8); Monocytes % 13.5 % (1.7-12.7); NRBC # 0.39 10*3/uL; Neutrophils # 3.5 10*3/uL (1.4-7.4); Neutrophils % 72.6 % (38.7-73.9); Platelet Count 117 T/CUMM (130-400); Red Blood Count 1.88 MC/CUMM (3.8-5.5); Red Cell Distribution Width 17.3 % (9.3-17.3); White Blood Count 4.8 T/CUMM (4-12)
[2018-06-24 04:47] LABS: Hematocrit 17.6 VOL% (42.0-52.0); Hemoglobin 5.2 GM/DL (14.0-18.0)
[2018-06-24 04:57] LABS: Calcium 7.2 MG/DL (8.5-10.1); Osmolality,Calculated 278.8 MOS/KG (273-304); Potassium 3.7 MMOL/L (3.5-5.1)
[2018-06-24] MEDS: NITROGLYCERIN 2% OINT 1 INCH/GM PACK TOP SCH ×3 (05:51→18:09)
[2018-06-24] MEDS: LEVOTHYROXINE 137 MCG TABLET PO SCH (05:51)
[2018-06-24] MEDS: LEVOFLOXACIN 500 MG TABLET PO SCH (09:36)
[2018-06-24] MEDS: HEPARIN 5,000 UNIT/1 ML VIAL SUBCUT SCH ×2 (09:36→20:48)
[2018-06-24] MEDS: CARVEDILOL 6.25 MG TABLET PO SCH ×2 (09:36→20:43)
[2018-06-24] MEDS: OMEGA 3 ACID ETHYL ESTERS 1 GM CAPSULE PO SCH ×2 (09:36→20:48)
[2018-06-24] MEDS: FERROUS SULFATE ER 140 MG TABLET PO SCH ×2 (09:36→20:48)
[2018-06-24] MEDS: amLODIPine 10 MG TABLET PO SCH (09:36)
[2018-06-24] MEDS: POLYETHYLENE GLYCOL POWDER 17 GM PACK PO SCH (09:36)
[2018-06-24] MEDS: CALCIUM (CARBONATE)/VITAMIN D 500 MG-200 UNIT TABLET PO SCH ×2 (09:36→23:05)
[2018-06-24] MEDS: ASPIRIN EC 325 MG TABLET PO SCH (09:36)
[2018-06-24] MEDS: PANTOPRAZOLE 40 MG TABLET PO SCH (09:36)
[2018-06-24] MEDS: CALCITRIOL 0.5 MCG CAPSULE PO SCH (09:36)
[2018-06-24] MEDS: ATORVASTATIN 40 MG TABLET PO SCH (20:48)
[2018-06-24] MEDS ORDERED: MIDAZOLAM 10 MG/2 ML VIAL ONE (21:58)
[2018-06-24] MEDS ORDERED: PROPOFOL 1,000 MG/100 ML BOTTLE IV ONE (22:03)
[2018-06-24] MEDS ORDERED: PANTOPRAZOLE INJ 80 MG in SODIUM CHLORIDE 0.9% 100 ML IV ONE (22:13)
[2018-06-24] MEDS ORDERED: MIDAZOLAM 2 MG/2 ML VIAL IV ONE (22:13)
[2018-06-24] MEDS ORDERED: SODIUM CHLORIDE 0.9% 500 ML IV ONE (22:37)
[2018-06-24 22:44] LABS: ABG Base Excess -1.5 MMOL/L (-2.5-2.5); ABG HCO3 23.1 MMOL/L (20-26); ABG Oxygen Saturation 92.9 % (95-100); ABG PO2 67.3 MM HG (80-95); ABG TCO2 28.7 MMOL/L (23-27)
[2018-06-24 22:46] LABS: ABG PCO2 90.1 MM HG (35-48); ABG PH 7.118 (7.35-7.45)
[2018-06-24] MEDS ORDERED: SODIUM BICARBONATE 50 MEQ/50 ML VIAL IV ONE ×2 (22:50→22:51)
[2018-06-24 22:51] LABS: Basophils % 0.6 % (0.0-0.8); Hematocrit 25.2 VOL% (42.0-52.0); Hemoglobin 7.3 GM/DL (14.0-18.0); Immature Granulocytes % 8.3 %; Immature Granulocytes Absolute 0.27 #; Lymphocytes # 0.3 10*3/uL (1.4-4.0); Lymphocytes % 9.5 % (21.2-54.2); Mean Corpuscular Hemoglobin 28 PG (27-34); Mean Corpuscular Volume 96.6 FL (87-102); Mean Platelet Volume 11.5 FL (9.6-12.0); Monocytes # 0.4 10*3/uL (0.11-0.8); Monocytes % 12.3 % (1.7-12.7); NRBC # 0.88 10*3/uL; Neutrophils # 2.3 10*3/uL (1.4-7.4); Neutrophils % 69.3 % (38.7-73.9); Platelet Count 106 T/CUMM (130-400); Red Blood Count 2.61 MC/CUMM (3.8-5.5); Red Cell Distribution Width 16.7 % (9.3-17.3); White Blood Count 3.3 T/CUMM (4-12)
[2018-06-24] MEDS: PROPOFOL 1,000 MG/100 ML BOTTLE IV SCH (23:11)
[2018-06-24 23:15] LABS: Alanine Aminotransferase 11 U/L (16-61); Albumin 2.9 G/DL (3.4-5.0); Alkaline Phosphatase 50 U/L (45-117); Aspartate Amino Transferase 23 U/L (0-37); Bilirubin,Total < 0.39 MG/DL (0.2-1.0); Blood Urea Nitrogen 34 MG/DL (7-18); Calcium 7.3 MG/DL (8.5-10.1); Glucose 125 MG/DL (74-106); Osmolality,Calculated 283.7 MOS/KG (273-304); Potassium 4.5 MMOL/L (3.5-5.1); Sodium 138 MMOL/L (136-145); Total Protein 6.5 G/DL (6.4-8.3)
[2018-06-24] MEDS ORDERED: PIPERACILLIN/TAZOBACTAM 3,375 MG in SODIUM CHLORIDE 0.9% 100 ML IV SCH (23:30)
[2018-06-25 00:16] LABS: Band Neutrophils 2 % (0-10); Eosinophils 1 % (0-10); Lymphocytes 15 % (20-55); Metamyelocytes 2 %; Myelocytes 1 %; Nucleated Red Blood Cells 34 (0-5); Segmented Neutrophils 71 % (50-85); Total Cells Counted 100
[2018-06-25 00:17] LABS: Anisocytosis 1+; Hypochromasia 1+; Ovalocytes 1+
[2018-06-25 00:18] LABS: Acanthocytes Few; Platelet Estimate Adequate
[2018-06-25] MEDS ORDERED: MIDAZOLAM 2 MG/2 ML VIAL IV ONE (00:40)
[2018-06-25] MEDS: PANTOPRAZOLE INJ 200 MG in SODIUM CHLORIDE 0.9% 250 ML IV SCH (01:50)
[2018-06-25] MEDS: PROPOFOL 1,000 MG/100 ML BOTTLE IV SCH ×3 (04:42→22:25)
[2018-06-25 04:57] LABS: ABG Base Excess 3.5 MMOL/L (-2.5-2.5); ABG HCO3 27.6 MMOL/L (20-26); ABG Oxygen Saturation 99.7 % (95-100); ABG PCO2 46.5 MM HG (35-48); ABG PH 7.398 (7.35-7.45); ABG TCO2 27.2 MMOL/L (23-27)
[2018-06-25] MEDS: INSULIN REGULAR 100 UNIT/ML SUBCUT SCH ×4 (05:05→18:41)
[2018-06-25] MEDS: NITROGLYCERIN 2% OINT 1 INCH/GM PACK TOP SCH ×4 (05:06→17:40)
[2018-06-25 05:12] LABS: ABG Base Excess 1.5 MMOL/L (-2.5-2.5); ABG HCO3 25.8 MMOL/L (20-26); ABG Oxygen Saturation 99.8 % (95-100); ABG PCO2 43.1 MM HG (35-48); ABG PH 7.397 (7.35-7.45); ABG TCO2 25.1 MMOL/L (23-27)
[2018-06-25 05:36] LABS: Basophils % 0.3 % (0.0-0.8); Eosinophils % 0.5 % (0.00-10.9); Hematocrit 23.9 VOL% (42.0-52.0); Hemoglobin 7.3 GM/DL (14.0-18.0); Immature Granulocytes Absolute 0.23 #; Lymphocytes # 0.6 10*3/uL (1.4-4.0); Lymphocytes % 10.4 % (21.2-54.2); Mean Corpuscular HGB Conc 30.5 GM/DL (32-36); Mean Corpuscular Hemoglobin 28 PG (27-34); Mean Platelet Volume 11.3 FL (9.6-12.0); Monocytes # 0.6 10*3/uL (0.11-0.8); Monocytes % 10.7 % (1.7-12.7); NRBC # 0.89 10*3/uL; Neutrophils # 4.3 10*3/uL (1.4-7.4); Neutrophils % 74.1 % (38.7-73.9); Platelet Count 94 T/CUMM (130-400); Red Blood Count 2.57 MC/CUMM (3.8-5.5); Red Cell Distribution Width 16.7 % (9.3-17.3); White Blood Count 5.8 T/CUMM (4-12)
[2018-06-25 05:58] LABS: Calcium 7.7 MG/DL (8.5-10.1); Osmolality,Calculated 281.7 MOS/KG (273-304); Potassium 4.4 MMOL/L (3.5-5.1)
[2018-06-25 06:10] LABS: Band Neutrophils 3 % (0-10); Hypochromasia 2+; Lymphocytes 6 % (20-55); Nucleated Red Blood Cells 14 (0-5); Ovalocytes Slight; Platelet Estimate Decreased; Segmented Neutrophils 82 % (50-85); Total Cells Counted 100
[2018-06-25] MEDS: ALBUMIN 25% 25 GM in PREMIX 1 EACH IV SCH ×2 (06:28→17:34)
[2018-06-25] MEDS: LEVOTHYROXINE 137 MCG TABLET PO SCH (06:28)
[2018-06-25] MEDS: methylPREDNISolone SOD SUC 40 MG/1 ML VIAL IV SCH ×2 (09:11→17:33)
[2018-06-25] MEDS ORDERED: SODIUM CHLORIDE 0.9% 1,000 ML IV PRN (09:38)
[2018-06-25] MEDS: amLODIPine 10 MG TABLET PO SCH (10:21)
[2018-06-25] MEDS: POLYETHYLENE GLYCOL POWDER 17 GM PACK PO SCH (10:21)
[2018-06-25] MEDS: FERROUS SULFATE ER 140 MG TABLET PO SCH ×2 (10:21→22:27)
[2018-06-25] MEDS: CALCITRIOL 0.5 MCG CAPSULE PO SCH (10:21)
[2018-06-25] MEDS: HEPARIN 5,000 UNIT/1 ML VIAL SUBCUT SCH (10:22)
[2018-06-25] MEDS: CARVEDILOL 6.25 MG TABLET PO SCH ×2 (10:22→22:27)
[2018-06-25] MEDS: OMEGA 3 ACID ETHYL ESTERS 1 GM CAPSULE PO SCH ×2 (10:22→22:27)
[2018-06-25] MEDS: CALCIUM (CARBONATE)/VITAMIN D 500 MG-200 UNIT TABLET PO SCH ×2 (10:22→22:27)
[2018-06-25] MEDS: ASPIRIN 325 MG TABLET PER TUBE SCH (10:22)
[2018-06-25] MEDS: PIPERACILLIN/TAZOBACTAM 3,375 MG in SODIUM CHLORIDE 0.9% 100 ML IV SCH (18:16)
[2018-06-25] MEDS: ATORVASTATIN 40 MG TABLET PO SCH (22:27)
[2018-06-26] MEDS: INSULIN REGULAR 100 UNIT/ML SUBCUT SCH ×4 (02:51→18:05)
[2018-06-26] MEDS: PANTOPRAZOLE INJ 200 MG in SODIUM CHLORIDE 0.9% 250 ML IV SCH (03:00)
[2018-06-26] MEDS: methylPREDNISolone SOD SUC 40 MG/1 ML VIAL IV SCH ×3 (03:31→16:44)
[2018-06-26] MEDS: NITROGLYCERIN 2% OINT 1 INCH/GM PACK TOP SCH ×4 (03:31→18:07)
[2018-06-26 04:23] LABS: ABG Base Excess 2.1 MMOL/L (-2.5-2.5); ABG HCO3 26.3 MMOL/L (20-26); ABG Oxygen Saturation 99.4 % (95-100); ABG TCO2 24.6 MMOL/L (23-27); Allen Test Positive; Pt O2 Delivery Device Ventilator
[2018-06-26 05:01] LABS: Basophils % 0.3 % (0.0-0.8); Hematocrit 26.7 VOL% (42.0-52.0); Hemoglobin 8.6 GM/DL (14.0-18.0); Immature Granulocytes % 1.9 %; Immature Granulocytes Absolute 0.13 #; Lymphocytes # 0.3 10*3/uL (1.4-4.0); Lymphocytes % 4.9 % (21.2-54.2); Mean Corpuscular HGB Conc 32.2 GM/DL (32-36); Mean Corpuscular Hemoglobin 28 PG (27-34); Mean Corpuscular Volume 88.1 FL (87-102); Mean Platelet Volume 12.1 FL (9.6-12.0); Monocytes # 0.7 10*3/uL (0.11-0.8); Monocytes % 9.9 % (1.7-12.7); NRBC # 0.87 10*3/uL; Neutrophils # 5.8 10*3/uL (1.4-7.4); Platelet Count 113 T/CUMM (130-400); Red Blood Count 3.03 MC/CUMM (3.8-5.5); Red Cell Distribution Width 16.2 % (9.3-17.3)
[2018-06-26] MEDS: PROPOFOL 1,000 MG/100 ML BOTTLE IV SCH ×5 (05:21→23:23)
[2018-06-26 05:33] LABS: Calcium 7.8 MG/DL (8.5-10.1); Osmolality,Calculated 278.5 MOS/KG (273-304); Potassium 3.6 MMOL/L (3.5-5.1)
[2018-06-26 05:45] LABS: Band Neutrophils 1 % (0-10); Lymphocytes 5 % (20-55); Nucleated Red Blood Cells 16 (0-5); Segmented Neutrophils 86 % (50-85); Total Cells Counted 100
[2018-06-26 05:46] LABS: Hypochromasia 1+; Ovalocytes Slight; Platelet Estimate Decreased
[2018-06-26] MEDS: ALBUMIN 25% 25 GM in PREMIX 1 EACH IV SCH ×2 (06:30→16:45)
[2018-06-26] MEDS: PIPERACILLIN/TAZOBACTAM 3,375 MG in SODIUM CHLORIDE 0.9% 100 ML IV SCH ×2 (06:31→18:07)
[2018-06-26] MEDS: LEVOTHYROXINE 137 MCG TABLET PO SCH (06:31)
[2018-06-26] MEDS ORDERED: LIDOCAINE 2% 20 ML VIAL MISC INJ ONE (08:15)
[2018-06-26] MEDS ORDERED: LIDOCAINE 2% 20 ML VIAL ONE (08:18)
[2018-06-26] MEDS: amLODIPine 10 MG TABLET PO SCH (10:06)
[2018-06-26] MEDS: POLYETHYLENE GLYCOL POWDER 17 GM PACK PO SCH (10:06)
[2018-06-26] MEDS: CALCITRIOL 0.5 MCG CAPSULE PO SCH (10:07)
[2018-06-26] MEDS: CARVEDILOL 6.25 MG TABLET PO SCH ×2 (10:07→21:52)
[2018-06-26] MEDS: FERROUS SULFATE ER 140 MG TABLET PO SCH ×2 (10:07→21:53)
[2018-06-26] MEDS: LEVOFLOXACIN 500 MG TABLET PO SCH (10:07)
[2018-06-26] MEDS: OMEGA 3 ACID ETHYL ESTERS 1 GM CAPSULE PO SCH ×2 (10:07→21:52)
[2018-06-26] MEDS: CALCIUM (CARBONATE)/VITAMIN D 500 MG-200 UNIT TABLET PO SCH ×2 (10:08→21:52)
[2018-06-26] MEDS: ATORVASTATIN 40 MG TABLET PO SCH (21:52)
[2018-06-26] MEDS: PANTOPRAZOLE 40 MG VIAL IV SCH (21:53)
[2018-06-27] MEDS: methylPREDNISolone SOD SUC 40 MG/1 ML VIAL IV SCH ×3 (01:00→16:11)
[2018-06-27] MEDS: NITROGLYCERIN 2% OINT 1 INCH/GM PACK TOP SCH ×4 (01:00→17:44)
[2018-06-27] MEDS: INSULIN REGULAR 100 UNIT/ML SUBCUT SCH ×4 (01:53→18:06)
[2018-06-27 03:43] LABS: ABG Base Excess 3.5 MMOL/L (-2.5-2.5); ABG HCO3 28.8 MMOL/L (20-26); ABG Oxygen Saturation 96.5 % (95-100); ABG PCO2 48.3 MM HG (35-48); ABG PH 7.394 (7.35-7.45); ABG PO2 90.7 MM HG (80-95); ABG TCO2 30.3 MMOL/L (23-27); Allen Test Positive; Pt O2 Delivery Device Ventilator
[2018-06-27] MEDS: PROPOFOL 1,000 MG/100 ML BOTTLE IV SCH ×4 (04:00→18:54)
[2018-06-27 05:05] LABS: Basophils % 0.1 % (0.0-0.8); Hematocrit 24.3 VOL% (42.0-52.0); Hemoglobin 7.7 GM/DL (14.0-18.0); Immature Granulocytes Absolute 0.14 #; Lymphocytes # 0.3 10*3/uL (1.4-4.0); Lymphocytes % 4.2 % (21.2-54.2); Mean Corpuscular HGB Conc 31.7 GM/DL (32-36); Mean Corpuscular Hemoglobin 29 PG (27-34); Mean Corpuscular Volume 90.3 FL (87-102); Mean Platelet Volume 11.9 FL (9.6-12.0); Monocytes # 0.5 10*3/uL (0.11-0.8); Monocytes % 7.4 % (1.7-12.7); NRBC # 0.69 10*3/uL; Neutrophils % 86.3 % (38.7-73.9); Platelet Count 133 T/CUMM (130-400); Red Blood Count 2.69 MC/CUMM (3.8-5.5); Red Cell Distribution Width 16.4 % (9.3-17.3); White Blood Count 6.9 T/CUMM (4-12)
[2018-06-27 05:30] LABS: Calcium 7.7 MG/DL (8.5-10.1); Osmolality,Calculated 283.7 MOS/KG (273-304); Potassium 3.4 MMOL/L (3.5-5.1)
[2018-06-27] MEDS: ALBUMIN 25% 25 GM in PREMIX 1 EACH IV SCH ×2 (05:35→17:17)
[2018-06-27] MEDS: PIPERACILLIN/TAZOBACTAM 3,375 MG in SODIUM CHLORIDE 0.9% 100 ML IV SCH ×2 (05:36→18:09)
[2018-06-27] MEDS: LEVOTHYROXINE 137 MCG TABLET PO SCH (05:37)
[2018-06-27 05:52] LABS: Hypochromasia 1+; Lymphocytes 6 % (20-55); Microcytosis 1+; Nucleated Red Blood Cells 3 (0-5); Platelet Estimate Decreased; Segmented Neutrophils 87 % (50-85); Total Cells Counted 100
[2018-06-27] MEDS: CALCIUM (CARBONATE)/VITAMIN D 500 MG-200 UNIT TABLET PO SCH ×2 (08:42→23:05)
[2018-06-27] MEDS: PANTOPRAZOLE 40 MG VIAL IV SCH ×2 (08:42→23:05)
[2018-06-27] MEDS: CALCITRIOL 0.5 MCG CAPSULE PO SCH (08:42)
[2018-06-27] MEDS: POLYETHYLENE GLYCOL POWDER 17 GM PACK PO SCH (08:42)
[2018-06-27] MEDS: OMEGA 3 ACID ETHYL ESTERS 1 GM CAPSULE PO SCH ×2 (08:42→23:05)
[2018-06-27] MEDS: amLODIPine 10 MG TABLET PO SCH (08:42)
[2018-06-27] MEDS: CARVEDILOL 6.25 MG TABLET PO SCH ×2 (08:42→23:05)
[2018-06-27] MEDS: FERROUS SULFATE ER 140 MG TABLET PO SCH ×2 (08:43→23:05)
[2018-06-27] MEDS: ATORVASTATIN 40 MG TABLET PO SCH (23:05)
[2018-06-28] MEDS: PROPOFOL 1,000 MG/100 ML BOTTLE IV SCH ×7 (01:10→23:51)
[2018-06-28] MEDS: INSULIN REGULAR 100 UNIT/ML SUBCUT SCH ×4 (02:01→17:55)
[2018-06-28] MEDS: NITROGLYCERIN 2% OINT 1 INCH/GM PACK TOP SCH ×4 (02:10→18:31)
[2018-06-28] MEDS: methylPREDNISolone SOD SUC 40 MG/1 ML VIAL IV SCH ×3 (02:10→15:57)
[2018-06-28 03:43] LABS: Basophils % 0.1 % (0.0-0.8); Hematocrit 23.1 VOL% (42.0-52.0); Hemoglobin 7.4 GM/DL (14.0-18.0); Immature Granulocytes % 1.7 %; Immature Granulocytes Absolute 0.15 #; Lymphocytes # 0.3 10*3/uL (1.4-4.0); Lymphocytes % 3.5 % (21.2-54.2); Mean Corpuscular Hemoglobin 29 PG (27-34); Mean Corpuscular Volume 90.2 FL (87-102); Mean Platelet Volume 11.1 FL (9.6-12.0); Monocytes # 0.7 10*3/uL (0.11-0.8); NRBC # 0.62 10*3/uL; Neutrophils # 7.7 10*3/uL (1.4-7.4); Neutrophils % 86.7 % (38.7-73.9); Platelet Count 151 T/CUMM (130-400); Red Blood Count 2.56 MC/CUMM (3.8-5.5); Red Cell Distribution Width 16.2 % (9.3-17.3); White Blood Count 8.9 T/CUMM (4-12)
[2018-06-28 03:56] LABS: Calcium 7.6 MG/DL (8.5-10.1); Osmolality,Calculated 282.8 MOS/KG (273-304); Potassium 3.4 MMOL/L (3.5-5.1)
[2018-06-28 04:01] LABS: ABG Base Excess 1.5 MMOL/L (-2.5-2.5); ABG HCO3 25.7 MMOL/L (20-26); ABG Oxygen Saturation 92.5 % (95-100); ABG PCO2 44.7 MM HG (35-48); ABG PH 7.385 (7.35-7.45); ABG PO2 63.7 MM HG (80-95); ABG TCO2 25.1 MMOL/L (23-27); Allen Test Positive; Pt O2 Delivery Device Ventilator
[2018-06-28 04:30] LABS: Hypochromasia 2+; Lymphocytes 3 % (20-55); Metamyelocytes 1 %; Nucleated Red Blood Cells 11 (0-5); Platelet Estimate Adequate; Segmented Neutrophils 86 % (50-85); Total Cells Counted 100
[2018-06-28] MEDS: ALBUMIN 25% 25 GM in PREMIX 1 EACH IV SCH ×2 (06:46→17:30)
[2018-06-28] MEDS: LEVOTHYROXINE 137 MCG TABLET PO SCH (06:47)
[2018-06-28] MEDS: PIPERACILLIN/TAZOBACTAM 3,375 MG in SODIUM CHLORIDE 0.9% 100 ML IV SCH ×2 (06:47→18:00)
[2018-06-28] MEDS ORDERED: PANTOPRAZOLE 40 MG VIAL IV SCH (09:00)
[2018-06-28] MEDS: LEVOFLOXACIN 500 MG TABLET PO SCH (09:31)
[2018-06-28] MEDS: CALCIUM (CARBONATE)/VITAMIN D 500 MG-200 UNIT TABLET PO SCH ×2 (09:31→22:46)
[2018-06-28] MEDS: OMEGA 3 ACID ETHYL ESTERS 1 GM CAPSULE PO SCH ×2 (09:31→22:46)
[2018-06-28] MEDS: CALCITRIOL 0.5 MCG CAPSULE PO SCH (09:31)
[2018-06-28] MEDS: amLODIPine 10 MG TABLET PO SCH (09:31)
[2018-06-28] MEDS: FERROUS SULFATE ER 140 MG TABLET PO SCH ×2 (09:31→22:47)
[2018-06-28] MEDS: PANTOPRAZOLE 40 MG VIAL IV SCH ×2 (09:34→22:47)
[2018-06-28] MEDS: POLYETHYLENE GLYCOL POWDER 17 GM PACK PO SCH (09:38)
[2018-06-28] MEDS: CARVEDILOL 6.25 MG TABLET PO SCH ×2 (09:38→22:46)
[2018-06-28] MEDS: ATORVASTATIN 40 MG TABLET PO SCH (22:46)
[2018-06-29] MEDS: INSULIN REGULAR 100 UNIT/ML SUBCUT SCH ×5 (00:35→23:05)
[2018-06-29] MEDS: NITROGLYCERIN 2% OINT 1 INCH/GM PACK TOP SCH ×5 (00:40→23:05)
[2018-06-29] MEDS: methylPREDNISolone SOD SUC 40 MG/1 ML VIAL IV SCH ×4 (00:40→23:05)
[2018-06-29] MEDS: PROPOFOL 1,000 MG/100 ML BOTTLE IV SCH ×6 (03:22→22:02)
[2018-06-29 03:39] LABS: ABG Base Excess -0.6 MMOL/L (-2.5-2.5); ABG HCO3 23.9 MMOL/L (20-26); ABG Oxygen Saturation 97.3 % (95-100); ABG PCO2 51.4 MM HG (35-48); ABG PH 7.311 (7.35-7.45); ABG PO2 97.8 MM HG (80-95); ABG TCO2 24.5 MMOL/L (23-27); Allen Test Positive; Pt O2 Delivery Device Ventilator
[2018-06-29 05:43] LABS: Calcium 7.3 MG/DL (8.5-10.1); Potassium 3.5 MMOL/L (3.5-5.1); Prealbumin 28.7 MG/DL (20-40)
[2018-06-29] MEDS: ALBUMIN 25% 25 GM in PREMIX 1 EACH IV SCH ×2 (07:23→16:44)
[2018-06-29] MEDS: PIPERACILLIN/TAZOBACTAM 3,375 MG in SODIUM CHLORIDE 0.9% 100 ML IV SCH ×2 (07:24→17:37)
[2018-06-29] MEDS: LEVOTHYROXINE 137 MCG TABLET PO SCH (07:25)
[2018-06-29] MEDS: CALCITRIOL 0.5 MCG CAPSULE PO SCH (09:34)
[2018-06-29] MEDS: FERROUS SULFATE ER 140 MG TABLET PO SCH ×2 (09:34→20:18)
[2018-06-29] MEDS: CALCIUM (CARBONATE)/VITAMIN D 500 MG-200 UNIT TABLET PO SCH ×2 (09:34→20:18)
[2018-06-29] MEDS: amLODIPine 10 MG TABLET PO SCH (09:35)
[2018-06-29] MEDS: CARVEDILOL 6.25 MG TABLET PO SCH ×2 (09:35→20:18)
[2018-06-29] MEDS: PANTOPRAZOLE 40 MG VIAL IV SCH ×2 (09:35→20:17)
[2018-06-29] MEDS: OMEGA 3 ACID ETHYL ESTERS 1 GM CAPSULE PO SCH ×2 (09:35→20:18)
[2018-06-29] MEDS: POLYETHYLENE GLYCOL POWDER 17 GM PACK PO SCH (11:01)
[2018-06-29] MEDS: BACITRACIN OINT 0.9 GM PACK TOP SCH (16:33)
[2018-06-29] MEDS: ATORVASTATIN 40 MG TABLET PO SCH (20:18)
[2018-06-30] MEDS: PROPOFOL 1,000 MG/100 ML BOTTLE IV SCH ×3 (01:00→09:59)
[2018-06-30 04:31] LABS: ABG HCO3 22.8 MMOL/L (20-26); ABG Oxygen Saturation 97.9 % (95-100); ABG PCO2 47.4 MM HG (35-48); ABG PH 7.317 (7.35-7.45); ABG TCO2 22.8 MMOL/L (23-27); Allen Test Positive; Pt O2 Delivery Device Ventilator
[2018-06-30] MEDS: ALBUMIN 25% 25 GM in PREMIX 1 EACH IV SCH ×2 (05:22→17:55)
[2018-06-30] MEDS: INSULIN REGULAR 100 UNIT/ML SUBCUT SCH ×4 (05:23→23:19)
[2018-06-30] MEDS: PIPERACILLIN/TAZOBACTAM 3,375 MG in SODIUM CHLORIDE 0.9% 100 ML IV SCH (05:24)
[2018-06-30] MEDS: NITROGLYCERIN 2% OINT 1 INCH/GM PACK TOP SCH ×4 (05:24→23:25)
[2018-06-30] MEDS: LEVOTHYROXINE 137 MCG TABLET PO SCH (05:30)
[2018-06-30 09:31] LABS: Basophils % 0.1 % (0.0-0.8); Eosinophils % 0.1 % (0.00-10.9); Hematocrit 25.1 VOL% (42.0-52.0); Hemoglobin 7.8 GM/DL (14.0-18.0); Immature Granulocytes % 4.7 %; Immature Granulocytes Absolute 0.38 #; Lymphocytes # 0.2 10*3/uL (1.4-4.0); Mean Corpuscular HGB Conc 31.1 GM/DL (32-36); Mean Corpuscular Hemoglobin 29 PG (27-34); Mean Corpuscular Volume 92.3 FL (87-102); Mean Platelet Volume 10.8 FL (9.6-12.0); Monocytes # 0.5 10*3/uL (0.11-0.8); Monocytes % 5.8 % (1.7-12.7); NRBC # 0.27 10*3/uL; Neutrophils % 86.3 % (38.7-73.9); Platelet Count 159 T/CUMM (130-400); Red Blood Count 2.72 MC/CUMM (3.8-5.5); Red Cell Distribution Width 16.3 % (9.3-17.3); White Blood Count 8.1 T/CUMM (4-12)
[2018-06-30] MEDS ORDERED: PROPOFOL 1,000 MG/100 ML BOTTLE IV ONE (09:45)
[2018-06-30 09:53] LABS: Band Neutrophils 1 % (0-10); Hypochromasia 1+; Lymphocytes 8 % (20-55); Microcytosis Slight; Myelocytes 1 %; Nucleated Red Blood Cells 2 (0-5); Platelet Estimate Adequate; Segmented Neutrophils 86 % (50-85); Total Cells Counted 100
[2018-06-30] MEDS: PANTOPRAZOLE 40 MG VIAL IV SCH ×2 (10:08→20:07)
[2018-06-30] MEDS: methylPREDNISolone SOD SUC 40 MG/1 ML VIAL IV SCH ×3 (10:09→23:25)
[2018-06-30] MEDS: FERROUS SULFATE ER 140 MG TABLET PO SCH ×2 (10:09→20:06)
[2018-06-30] MEDS: cefTRIAXone 1,000 MG in SYRINGE 1 EACH IV SCH (10:09)
[2018-06-30] MEDS: CALCIUM (CARBONATE)/VITAMIN D 500 MG-200 UNIT TABLET PO SCH ×2 (10:09→20:07)
[2018-06-30] MEDS: OMEGA 3 ACID ETHYL ESTERS 1 GM CAPSULE PO SCH ×2 (10:10→20:07)
[2018-06-30] MEDS: amLODIPine 10 MG TABLET PO SCH (10:10)
[2018-06-30] MEDS: CALCITRIOL 0.5 MCG CAPSULE PO SCH (10:10)
[2018-06-30] MEDS: CARVEDILOL 6.25 MG TABLET PO SCH ×2 (10:10→20:07)
[2018-06-30] MEDS: BACITRACIN OINT 0.9 GM PACK TOP SCH (10:11)
[2018-06-30] MEDS ORDERED: ACETAMINOPHEN 325 MG/10.15 ML UDCUP PO PRN (10:32)
[2018-06-30] MEDS: ATORVASTATIN 40 MG TABLET PO SCH (20:06)
[2018-07-01 04:04] LABS: Basophils % 0.1 % (0.0-0.8); Hematocrit 26.4 VOL% (42.0-52.0); Hemoglobin 7.9 GM/DL (14.0-18.0); Immature Granulocytes % 3.9 %; Immature Granulocytes Absolute 0.41 #; Lymphocytes # 0.2 10*3/uL (1.4-4.0); Lymphocytes % 2.1 % (21.2-54.2); Mean Corpuscular HGB Conc 29.9 GM/DL (32-36); Mean Corpuscular Hemoglobin 28 PG (27-34); Mean Corpuscular Volume 92.3 FL (87-102); Mean Platelet Volume 11.6 FL (9.6-12.0); Monocytes # 0.6 10*3/uL (0.11-0.8); Monocytes % 5.8 % (1.7-12.7); NRBC # 0.33 10*3/uL; Neutrophils # 9.2 10*3/uL (1.4-7.4); Neutrophils % 88.1 % (38.7-73.9); Platelet Count 185 T/CUMM (130-400); Red Blood Count 2.86 MC/CUMM (3.8-5.5); Red Cell Distribution Width 16.3 % (9.3-17.3); White Blood Count 10.5 T/CUMM (4-12)
[2018-07-01 04:28] LABS: Calcium 7.7 MG/DL (8.5-10.1); Osmolality,Calculated 281.1 MOS/KG (273-304); Potassium 3.8 MMOL/L (3.5-5.1)
[2018-07-01 04:40] LABS: Hypochromasia 1+; Lymphocytes 8 % (20-55); Nucleated Red Blood Cells 5 (0-5); Platelet Estimate Adequate; Segmented Neutrophils 85 % (50-85); Total Cells Counted 100
[2018-07-01] MEDS: INSULIN REGULAR 100 UNIT/ML SUBCUT SCH ×3 (05:29→18:04)
[2018-07-01] MEDS: NITROGLYCERIN 2% OINT 1 INCH/GM PACK TOP SCH ×3 (05:36→19:27)
[2018-07-01] MEDS: ALBUMIN 25% 25 GM in PREMIX 1 EACH IV SCH (05:37)
[2018-07-01] MEDS: LEVOTHYROXINE 137 MCG TABLET PO SCH (05:37)
[2018-07-01 05:41] LABS: Allen Test Positive
[2018-07-01 06:03] LABS: ABG Base Excess 0.2 MMOL/L (-2.5-2.5); ABG HCO3 24.6 MMOL/L (20-26); ABG Oxygen Saturation 96.7 % (95-100); ABG PCO2 49.5 MM HG (35-48); ABG PH 7.334 (7.35-7.45); ABG PO2 83.8 MM HG (80-95); ABG TCO2 24.7 MMOL/L (23-27)
[2018-07-01] MEDS: methylPREDNISolone SOD SUC 40 MG/1 ML VIAL IV SCH ×2 (08:47→20:52)
[2018-07-01] MEDS: PANTOPRAZOLE 40 MG VIAL IV SCH ×2 (08:52→20:53)
[2018-07-01] MEDS: cefTRIAXone 1,000 MG in SYRINGE 1 EACH IV SCH (08:53)
[2018-07-01] MEDS: CALCIUM (CARBONATE)/VITAMIN D 500 MG-200 UNIT TABLET PO SCH ×2 (08:56→20:53)
[2018-07-01] MEDS: amLODIPine 10 MG TABLET PO SCH (08:56)
[2018-07-01] MEDS: BACITRACIN OINT 0.9 GM PACK TOP SCH (08:57)
[2018-07-01] MEDS: CARVEDILOL 6.25 MG TABLET PO SCH ×2 (08:57→20:53)
[2018-07-01] MEDS: CALCITRIOL 0.5 MCG CAPSULE PO SCH (08:57)
[2018-07-01] MEDS: OMEGA 3 ACID ETHYL ESTERS 1 GM CAPSULE PO SCH ×2 (08:58→20:53)
[2018-07-01] MEDS: NICOTINE 21 MG/24 HR PATCH TRANSDERM PRN (12:36)
[2018-07-01] MEDS: ATORVASTATIN 40 MG TABLET PO SCH (20:53)
[2018-07-02] MEDS: NITROGLYCERIN 2% OINT 1 INCH/GM PACK TOP SCH ×4 (00:59→17:39)
[2018-07-02] MEDS: INSULIN REGULAR 100 UNIT/ML SUBCUT SCH ×5 (00:59→22:10)
[2018-07-02 03:16] LABS: Allen Test Positive; Pt O2 Delivery Device Room Air
[2018-07-02 03:17] LABS: ABG HCO3 23.4 MMOL/L (20-26); ABG Oxygen Saturation 87.9 % (95-100); ABG PCO2 46.5 MM HG (35-48); ABG PH 7.339 (7.35-7.45); ABG PO2 54.5 MM HG (80-95)
[2018-07-02 05:11] LABS: Albumin 3.5 G/DL (3.4-5.0); Calcium 8.2 MG/DL (8.5-10.1); Osmolality,Calculated 291.1 MOS/KG (273-304); Potassium 3.6 MMOL/L (3.5-5.1)
[2018-07-02 05:13] LABS: Prealbumin 20.6 MG/DL (20-40)
[2018-07-02 06:04] LABS: Basophils % 0.2 % (0.0-0.8); Eosinophils % 0.1 % (0.00-10.9); Hematocrit 36.7 VOL% (42.0-52.0); Hemoglobin 11.4 GM/DL (14.0-18.0); Immature Granulocytes % 2.1 %; Immature Granulocytes Absolute 0.23 #; Lymphocytes # 0.5 10*3/uL (1.4-4.0); Lymphocytes % 4.2 % (21.2-54.2); Mean Corpuscular HGB Conc 31.1 GM/DL (32-36); Mean Corpuscular Hemoglobin 28 PG (27-34); Mean Corpuscular Volume 91.5 FL (87-102); Mean Platelet Volume 11.4 FL (9.6-12.0); Monocytes # 0.7 10*3/uL (0.11-0.8); Monocytes % 6.1 % (1.7-12.7); NRBC # 0.14 10*3/uL; Neutrophils # 9.7 10*3/uL (1.4-7.4); Neutrophils % 87.3 % (38.7-73.9); Platelet Count 204 T/CUMM (130-400); Red Blood Count 4.01 MC/CUMM (3.8-5.5); Red Cell Distribution Width 16.9 % (9.3-17.3); White Blood Count 11.1 T/CUMM (4-12)
[2018-07-02 06:29] LABS: Band Neutrophils 1 % (0-10); Hypochromasia Slight; Lymphocytes 5 % (20-55); Nucleated Red Blood Cells 1 (0-5); Ovalocytes Slight; Platelet Estimate Adequate; Segmented Neutrophils 88 % (50-85); Total Cells Counted 100
[2018-07-02] MEDS: LEVOTHYROXINE 137 MCG TABLET PO SCH (07:30)
[2018-07-02] MEDS: cefTRIAXone 1,000 MG in SYRINGE 1 EACH IV SCH ×2 (08:35→08:46)
[2018-07-02] MEDS: CARVEDILOL 6.25 MG TABLET PO SCH ×2 (08:46→22:09)
[2018-07-02] MEDS: FERROUS SULFATE ER 140 MG TABLET PO SCH ×2 (08:48→22:10)
[2018-07-02] MEDS: BACITRACIN OINT 0.9 GM PACK TOP SCH (08:48)
[2018-07-02] MEDS: amLODIPine 10 MG TABLET PO SCH (08:48)
[2018-07-02] MEDS: HEPARIN 5,000 UNIT/1 ML VIAL SUBCUT SCH ×2 (08:49→22:09)
[2018-07-02] MEDS: CALCITRIOL 0.5 MCG CAPSULE PO SCH (08:49)
[2018-07-02] MEDS: OMEGA 3 ACID ETHYL ESTERS 1 GM CAPSULE PO SCH ×2 (08:49→22:10)
[2018-07-02] MEDS: PANTOPRAZOLE 40 MG VIAL IV SCH ×2 (08:49→22:10)
[2018-07-02] MEDS: ASPIRIN 325 MG TABLET PER TUBE SCH (08:51)
[2018-07-02] MEDS: methylPREDNISolone SOD SUC 40 MG/1 ML VIAL IV SCH ×2 (08:51→22:09)
[2018-07-02] MEDS: CALCIUM (CARBONATE)/VITAMIN D 500 MG-200 UNIT TABLET PO SCH ×2 (08:54→22:10)
[2018-07-02] MEDS: hydrALAZINE 25 MG TABLET PO SCH ×3 (09:17→22:09)
[2018-07-02] MEDS: ATORVASTATIN 40 MG TABLET PO SCH (22:10)
[2018-07-03] MEDS: NITROGLYCERIN 2% OINT 1 INCH/GM PACK TOP SCH ×4 (02:05→17:41)
[2018-07-03 05:40] LABS: Basophils % 0.2 % (0.0-0.8); Eosinophils % 0.1 % (0.00-10.9); Hematocrit 37.8 VOL% (42.0-52.0); Hemoglobin 11.7 GM/DL (14.0-18.0); Immature Granulocytes % 1.5 %; Lymphocytes # 0.4 10*3/uL (1.4-4.0); Lymphocytes % 3.1 % (21.2-54.2); Mean Corpuscular Hemoglobin 29 PG (27-34); Mean Corpuscular Volume 92.9 FL (87-102); Mean Platelet Volume 11.7 FL (9.6-12.0); Monocytes # 0.7 10*3/uL (0.11-0.8); NRBC # 0.23 10*3/uL; Neutrophils # 11.8 10*3/uL (1.4-7.4); Neutrophils % 90.1 % (38.7-73.9); Platelet Count 197 T/CUMM (130-400); Red Blood Count 4.07 MC/CUMM (3.8-5.5); Red Cell Distribution Width 17.6 % (9.3-17.3); White Blood Count 13.1 T/CUMM (4-12)
[2018-07-03 05:49] LABS: Lymphocytes 5 % (20-55); Microcytosis 1+; Segmented Neutrophils 91 % (50-85); Total Cells Counted 100
[2018-07-03 05:50] LABS: Hypochromasia 1+; Ovalocytes Slight; Platelet Estimate Adequate; Target Cells Slight
[2018-07-03 06:00] LABS: Albumin 3.8 G/DL (3.4-5.0); Calcium 8.1 MG/DL (8.5-10.1); Osmolality,Calculated 283.2 MOS/KG (273-304); Potassium 4.4 MMOL/L (3.5-5.1)
[2018-07-03] MEDS: LEVOTHYROXINE 137 MCG TABLET PO SCH (06:23)
[2018-07-03] MEDS: INSULIN REGULAR 100 UNIT/ML SUBCUT SCH ×4 (08:08→22:34)
[2018-07-03] MEDS: cefTRIAXone 1,000 MG in SYRINGE 1 EACH IV SCH (08:45)
[2018-07-03] MEDS: HEPARIN 5,000 UNIT/1 ML VIAL SUBCUT SCH ×2 (09:01→21:19)
[2018-07-03] MEDS: OMEGA 3 ACID ETHYL ESTERS 1 GM CAPSULE PO SCH ×2 (09:01→21:20)
[2018-07-03] MEDS: CALCITRIOL 0.5 MCG CAPSULE PO SCH (09:01)
[2018-07-03] MEDS: PANTOPRAZOLE 40 MG VIAL IV SCH ×2 (09:01→21:19)
[2018-07-03] MEDS: BACITRACIN OINT 0.9 GM PACK TOP SCH (09:01)
[2018-07-03] MEDS: ASPIRIN 325 MG TABLET PER TUBE SCH (09:01)
[2018-07-03] MEDS: CALCIUM (CARBONATE)/VITAMIN D 500 MG-200 UNIT TABLET PO SCH (09:01)
[2018-07-03] MEDS: methylPREDNISolone SOD SUC 40 MG/1 ML VIAL IV SCH ×2 (09:01→21:19)
[2018-07-03] MEDS: FERROUS SULFATE ER 140 MG TABLET PO SCH ×2 (09:02→21:22)
[2018-07-03] MEDS: CARVEDILOL 6.25 MG TABLET PO SCH (10:23)
[2018-07-03] MEDS: LOSARTAN 50 MG TABLET PO SCH (10:23)
[2018-07-03] MEDS: amLODIPine 10 MG TABLET PO SCH (10:23)
[2018-07-03] MEDS: hydrALAZINE 25 MG TABLET PO SCH ×3 (10:27→21:20)
[2018-07-03] MEDS: ATORVASTATIN 40 MG TABLET PO SCH (21:20)
[2018-07-03] MEDS: CARVEDILOL 12.5 MG TABLET PO SCH (21:20)
[2018-07-04] MEDS: NITROGLYCERIN 2% OINT 1 INCH/GM PACK TOP SCH ×4 (00:39→17:34)
[2018-07-04] MEDS: LEVOTHYROXINE 137 MCG TABLET PO SCH (06:40)
[2018-07-04] MEDS: INSULIN REGULAR 100 UNIT/ML SUBCUT SCH ×4 (07:50→21:27)
[2018-07-04] MEDS: hydrALAZINE 25 MG TABLET PO SCH (10:51)
[2018-07-04] MEDS: OMEGA 3 ACID ETHYL ESTERS 1 GM CAPSULE PO SCH ×2 (11:55→21:25)
[2018-07-04] MEDS: LOSARTAN 50 MG TABLET PO SCH (11:55)
[2018-07-04] MEDS: ASPIRIN 325 MG TABLET PER TUBE SCH (11:55)
[2018-07-04] MEDS: CALCITRIOL 0.5 MCG CAPSULE PO SCH (11:56)
[2018-07-04] MEDS: FERROUS SULFATE ER 140 MG TABLET PO SCH ×2 (11:57→21:28)
[2018-07-04] MEDS: CARVEDILOL 12.5 MG TABLET PO SCH ×2 (11:57→21:25)
[2018-07-04] MEDS: BACITRACIN OINT 0.9 GM PACK TOP SCH (11:57)
[2018-07-04] MEDS: amLODIPine 10 MG TABLET PO SCH (11:57)
[2018-07-04] MEDS: PANTOPRAZOLE 40 MG VIAL IV SCH ×2 (12:03→21:24)
[2018-07-04] MEDS: methylPREDNISolone SOD SUC 40 MG/1 ML VIAL IV SCH ×2 (12:03→21:24)
[2018-07-04] MEDS: cefTRIAXone 1,000 MG in SYRINGE 1 EACH IV SCH (12:04)
[2018-07-04] MEDS: HEPARIN 5,000 UNIT/1 ML VIAL SUBCUT SCH ×2 (12:13→21:24)
[2018-07-04] MEDS: ATORVASTATIN 40 MG TABLET PO SCH (21:25)
[2018-07-05] MEDS: NITROGLYCERIN 2% OINT 1 INCH/GM PACK TOP SCH ×3 (00:58→12:30)
[2018-07-05 05:05] LABS: Basophils % 0.1 % (0.0-0.8); Hematocrit 28.2 VOL% (42.0-52.0); Hemoglobin 8.6 GM/DL (14.0-18.0); Immature Granulocytes % 0.9 %; Immature Granulocytes Absolute 0.07 #; Lymphocytes # 0.3 10*3/uL (1.4-4.0); Lymphocytes % 4.1 % (21.2-54.2); Mean Corpuscular HGB Conc 30.5 GM/DL (32-36); Mean Corpuscular Hemoglobin 29 PG (27-34); Mean Corpuscular Volume 93.7 FL (87-102); Mean Platelet Volume 11.4 FL (9.6-12.0); Monocytes # 0.3 10*3/uL (0.11-0.8); Monocytes % 4.1 % (1.7-12.7); NRBC # 0.02 10*3/uL; Neutrophils # 7.4 10*3/uL (1.4-7.4); Neutrophils % 90.8 % (38.7-73.9); Platelet Count 246 T/CUMM (130-400); Red Blood Count 3.01 MC/CUMM (3.8-5.5); Red Cell Distribution Width 18.3 % (9.3-17.3); White Blood Count 8.1 T/CUMM (4-12)
[2018-07-05 05:27] LABS: Calcium 7.8 MG/DL (8.5-10.1); Osmolality,Calculated 293.4 MOS/KG (273-304); Potassium 3.4 MMOL/L (3.5-5.1)
[2018-07-05 06:19] LABS: Anisocytosis 1+; Hypochromasia 1+; Lymphocytes 6 % (20-55); Macrocytosis Slight; Microcytosis 1+; Platelet Estimate Adequate; Polychromasia Slight; Segmented Neutrophils 89 % (50-85); Total Cells Counted 100
[2018-07-05] MEDS: LEVOTHYROXINE 137 MCG TABLET PO SCH (06:26)
[2018-07-05] MEDS: INSULIN REGULAR 100 UNIT/ML SUBCUT SCH ×2 (07:37→11:30)
[2018-07-05] MEDS: ASPIRIN 325 MG TABLET PER TUBE SCH (09:26)
[2018-07-05] MEDS: OMEGA 3 ACID ETHYL ESTERS 1 GM CAPSULE PO SCH (09:26)
[2018-07-05] MEDS: CALCITRIOL 0.5 MCG CAPSULE PO SCH (09:26)
[2018-07-05] MEDS: LOSARTAN 50 MG TABLET PO SCH (09:26)
[2018-07-05] MEDS: amLODIPine 10 MG TABLET PO SCH (09:26)
[2018-07-05] MEDS: FERROUS SULFATE ER 140 MG TABLET PO SCH (09:26)
[2018-07-05] MEDS: BACITRACIN OINT 0.9 GM PACK TOP SCH (09:27)
[2018-07-05] MEDS: CARVEDILOL 12.5 MG TABLET PO SCH (09:29)
[2018-07-05] MEDS: methylPREDNISolone SOD SUC 40 MG/1 ML VIAL IV SCH (09:31)
[2018-07-05] MEDS: HEPARIN 5,000 UNIT/1 ML VIAL SUBCUT SCH (09:31)
[2018-07-05] MEDS: PANTOPRAZOLE 40 MG VIAL IV SCH (09:34)
[2018-07-05] MEDS: cefTRIAXone 1,000 MG in SYRINGE 1 EACH IV SCH (09:43)
[2018-07-05 18:48] VITALS: BP 151/87
== END 2018-07-05 14:50 | DRG 291 ==
LOC: EDUNIT# → EDBD → EDSEX → N.ED 12:29 → N.EDINP 17:01 → SUATTDRO 17:01 → N.4E 17:55 → N.ICU 06-24 22:33 → N.5E 07-03 15:46
PROVIDERS: ADMIT Internal Medicine; ATTEND Hospitalist
PROC: EGDWPEG (ICD-10-PCS; 2018-06-22 11:20)

== ENCOUNTER 2019-07-30 10:10 | Inpatient (IN) ==
[2019-07-30] MEDS ORDERED: VANCOMYCIN INJ 1,000 MG in SODIUM CHLORIDE 0.9% 250 ML IV STA (10:51)
[2019-07-30] MEDS ORDERED: hydrALAZINE 20 MG/1 ML VIAL IV STA (10:59)
[2019-07-30 11:33] LABS: Basophils % 0.4 % (0.0-0.8); Eosinophils # 0.1 10*3/uL (0.0-0.87); Eosinophils % 1.7 % (0.00-10.9); Hematocrit 31.6 VOL% (42.0-52.0); Hemoglobin 9.2 GM/DL (14.0-18.0); Immature Granulocytes % 0.4 %; Immature Granulocytes Absolute 0.02 #; Lymphocytes # 0.9 10*3/uL (1.4-4.0); Lymphocytes % 17.7 % (21.2-54.2); Mean Corpuscular HGB Conc 29.1 GM/DL (32-36); Mean Corpuscular Volume 92.9 FL (87-102); Mean Platelet Volume 8.8 FL (9.6-12.0); Monocytes % 8.3 % (1.7-12.7); Neutrophils % 71.5 % (38.7-73.9); Platelet Count 141 T/CUMM (130-400); Red Cell Distribution Width 20.2 % (9.3-17.3); White Blood Count 4.8 T/CUMM (4-12)
[2019-07-30 11:45] LABS: PT Patient Result 10.9 SECS (9.8-11.9); Partial Thromboplastin Time 34.1 SECS (23.9-33.8)
[2019-07-30 11:58] LABS: Alanine Aminotransferase 9 U/L (16-61); Albumin 3.1 G/DL (3.4-5.0); Alkaline Phosphatase 60 U/L (45-117); Aspartate Amino Transferase 9 U/L (0-37); Blood Urea Nitrogen 49 MG/DL (7-18); Calcium 8.5 MG/DL (8.5-10.1); Ferritin 1060.1 ng/ml (26-388); Glucose 85 MG/DL (74-106); Osmolality,Calculated 286.7 MOS/KG (273-304); Total Protein 7.8 G/DL (6.4-8.3)
[2019-07-30 12:01] LABS: Estimated Glom Filtration Rate 0 ML/MIN; Troponin I 0.366 NG/ML (0.00-0.045)
[2019-07-30] MEDS ORDERED: AZITHROMYCIN INJ 500 MG in SODIUM CHLORIDE 0.9% 250 ML IV STA (12:29)
[2019-07-30] MEDS ORDERED: hydrALAZINE 20 MG/1 ML VIAL IV PRN (13:36)
[2019-07-30] MEDS ORDERED: ACETAMINOPHEN 325 MG TABLET PO PRN (13:36)
[2019-07-30] MEDS ORDERED: DOCUSATE SODIUM 100 MG CAPSULE PO PRN (13:36)
[2019-07-30] MEDS ORDERED: ONDANSETRON 4 MG/2 ML VIAL IV PRN (13:36)
[2019-07-30] MEDS ORDERED: cefTRIAXone 1,000 MG in SYRINGE 1 EACH IV SCH (17:00)
[2019-07-30] MEDS: SEVELAMER CARBONATE 800 MG TABLET PO SCH (19:07)
[2019-07-30] MEDS: PANTOPRAZOLE 40 MG TABLET PO SCH (21:00)
[2019-07-30] MEDS ORDERED: VANCOMYCIN INJ 500 MG in SODIUM CHLORIDE 0.9% 250 ML IV ONE (21:00)
[2019-07-30] MEDS: OMEGA 3 ACID ETHYL ESTERS 1 GM CAPSULE PO SCH (21:00)
[2019-07-31 06:07] LABS: Eosinophils # 0.1 10*3/uL (0.0-0.87); Eosinophils % 2.9 % (0.00-10.9); Hematocrit 32.2 VOL% (42.0-52.0); Immature Granulocytes % 0.5 %; Immature Granulocytes Absolute 0.02 #; Lymphocytes % 23.4 % (21.2-54.2); Mean Corpuscular HGB Conc 28.9 GM/DL (32-36); Mean Corpuscular Volume 93.9 FL (87-102); Mean Platelet Volume 9.5 FL (9.6-12.0); Monocytes % 8.6 % (1.7-12.7); Neutrophils % 63.6 % (38.7-73.9); Platelet Count 154 T/CUMM (130-400); Red Blood Count 3.43 MC/CUMM (3.8-5.5); Red Cell Distribution Width 20.2 % (9.3-17.3); White Blood Count 4.2 T/CUMM (4-12)
[2019-07-31 06:41] LABS: Calcium 8.5 MG/DL (8.5-10.1); Osmolality,Calculated 282.5 MOS/KG (273-304); Risk Ratio 2.63; Thyroid Stimulating Hormone 6.01 uIU/ml (0.358-3.74); VLDL CHOLESTEROL 17.6 MG/DL
[2019-07-31 06:50] LABS: Hemoglobin 9.4 GM/DL (14.0-18.0)
[2019-07-31 07:05] LABS: Hypochromasia 2+; Microcytosis Slight
[2019-07-31 07:06] LABS: Platelet Estimate Adequate; Polychromasia Slight
[2019-07-31] MEDS ORDERED: amLODIPine 10 MG TABLET PO SCH (09:00)
[2019-07-31] MEDS: PANTOPRAZOLE 40 MG TABLET PO SCH (09:51)
[2019-07-31] MEDS: SEVELAMER CARBONATE 800 MG TABLET PO SCH ×2 (09:51→14:27)
[2019-07-31] MEDS: OMEGA 3 ACID ETHYL ESTERS 1 GM CAPSULE PO SCH (09:51)
[2019-07-31 12:25] VITALS: BP 140/67
[2019-07-31] MEDS ORDERED: VANCOMYCIN INJ 500 MG in SODIUM CHLORIDE 0.9% 250 ML IV PRN (17:00)
== END 2019-07-31 15:18 | disposition home or self-care (01) | DRG 314 ==
LOC: N.ED 10:10 → N.EDINP 12:44 → N.2E 15:05
PROVIDERS: ADMIT Internal Medicine; ATTEND Internal Medicine

== ENCOUNTER 2021-06-13 15:52 | Inpatient (IN) ==
[2021-06-13 18:04] LABS: Basophils % 0.3 % (0.0-0.8); Hematocrit 28.2 VOL% (42.0-52.0); Hemoglobin 9.4 GM/DL (14.0-18.0); Immature Granulocytes % 5.6 %; Immature Granulocytes Absolute 0.45 #; Lymphocytes # 0.4 10*3/uL (1.4-4.0); Lymphocytes % 4.6 % (21.2-54.2); Mean Corpuscular HGB Conc 33.3 GM/DL (32-36); Mean Corpuscular Volume 102.2 FL (87-102); Mean Platelet Volume 11.7 FL (9.6-12.0); Monocytes % 5.6 % (1.7-12.7); NRBC # 0.08 10*3/uL; Neutrophils % 83.9 % (38.7-73.9); Platelet Count 108 T/CUMM (130-400); Red Blood Count 2.76 MC/CUMM (3.8-5.5); Red Cell Distribution Width 21.8 % (9.3-17.3)
[2021-06-13 18:26] LABS: Albumin 1.9 G/DL (3.4-5.0); Bilirubin,Total 3.8 MG/DL (0.20-1.00); Osmolality,Calculated 298.5 MOS/KG (273-304); Total Protein 5.5 G/DL (6.4-8.2)
[2021-06-13 18:31] LABS: Eosinophils 1 % (0-10); Lymphocytes 2 % (20-55); Metamyelocytes 1 %; Segmented Neutrophils 89 % (50-85); Total Cells Counted 100
[2021-06-13 18:33] LABS: Platelet Estimate Decreased
[2021-06-13 18:34] LABS: Anisocytosis 1+; Macrocytosis 1+
[2021-06-13 18:36] LABS: Polychromasia 2+; Schistocytes 1+; Target Cells 2+
[2021-06-13 18:51] LABS: Potassium 6.5 MMOL/L (3.5-5.1)
[2021-06-13] MEDS ORDERED: INSULIN REGULAR 10 UNIT, CALCIUM GLUCONATE 1,000 MG in DEXTROSE 10% 250 ML IV ONE (19:21)
[2021-06-13] MEDS ORDERED: LACTATED RINGERS 500 ML IV ONE (19:43)
[2021-06-13] MEDS ORDERED: ONDANSETRON 4 MG/2 ML VIAL IV PRN (21:26)
[2021-06-13] MEDS ORDERED: GLUCAGON 1 MG VIAL IM PRN (21:26)
[2021-06-13] MEDS ORDERED: ACETAMINOPHEN 325 MG TABLET PO PRN (21:26)
[2021-06-13 21:54] LABS: INR 1.3; PT Patient Result 13.8 SECS (10.5-12.0); Partial Thromboplastin Time 26.5 SECS (23.8-32.1)
[2021-06-13] MEDS ORDERED: DEXTROSE 10% 250 ML BAG IV PRN (21:54)
[2021-06-13] MEDS: HEPARIN 5,000 UNIT/1 ML VIAL SUBCUT SCH (22:28)
[2021-06-13] MEDS ORDERED: ALBUTEROL/IPRATROPIUM 3 ML NEB RESP TX ONE (23:01)
[2021-06-13] MEDS ORDERED: ALBUTEROL 2.5 MG/3 ML NEB RESP TX ONE (23:02)
[2021-06-14] MEDS: ALBUTEROL 2.5 MG/3 ML NEB RESP TX SCH ×4 (00:42→19:10)
[2021-06-14 04:40] LABS: Basophils % 0.4 % (0.0-0.8); Eosinophils % 0.1 % (0.00-10.9); Hematocrit 29.1 VOL% (42.0-52.0); Hemoglobin 9.3 GM/DL (14.0-18.0); Immature Granulocytes % 5.5 %; Immature Granulocytes Absolute 0.46 #; Lymphocytes # 0.4 10*3/uL (1.4-4.0); Lymphocytes % 4.2 % (21.2-54.2); Mean Corpuscular Volume 102.1 FL (87-102); Mean Platelet Volume 12.4 FL (9.6-12.0); Monocytes % 5.2 % (1.7-12.7); NRBC # 0.09 10*3/uL; Neutrophils % 84.6 % (38.7-73.9); Platelet Count 115 T/CUMM (130-400); Red Blood Count 2.85 MC/CUMM (3.8-5.5); Red Cell Distribution Width 21.4 % (9.3-17.3); White Blood Count 8.3 T/CUMM (4-12)
[2021-06-14 05:01] LABS: Albumin 1.9 G/DL (3.4-5.0); Band Neutrophils 1 % (0-10); Bilirubin,Total 3.8 MG/DL (0.20-1.00); Calcium 8.5 MG/DL (8.5-10.1); Hypochromia 1+; Lymphocytes 6 % (20-55); Microcytosis 1+; Osmolality,Calculated 293.8 MOS/KG (273-304); Segmented Neutrophils 91 % (50-85); Total Cells Counted 100; Total Protein 5.6 G/DL (6.4-8.2)
[2021-06-14 05:24] LABS: Potassium 6.6 MMOL/L (3.5-5.1)
[2021-06-14] MEDS ORDERED: INSULIN REGULAR 10 UNIT, CALCIUM GLUCONATE 1,000 MG in DEXTROSE 10% 250 ML IV ONE (05:32)
[2021-06-14] MEDS: HEPARIN 5,000 UNIT/1 ML VIAL SUBCUT SCH ×2 (09:19→22:24)
[2021-06-14] MEDS: DOCUSATE SODIUM 100 MG CAPSULE PO SCH ×2 (09:19→22:27)
[2021-06-14] MEDS: PANTOPRAZOLE 40 MG TABLET PO SCH (09:19)
[2021-06-14] MEDS: ICOSAPENT ETHYL 1 GM PO SCH ×2 (09:20→22:24)
[2021-06-15] MEDS: ALBUTEROL 2.5 MG/3 ML NEB RESP TX SCH ×4 (00:30→19:46)
[2021-06-15 05:28] LABS: Basophils % 0.1 % (0.0-0.8); Eosinophils % 0.1 % (0.00-10.9); Hematocrit 29.9 VOL% (42.0-52.0); Hemoglobin 9.8 GM/DL (14.0-18.0); Immature Granulocytes % 4.1 %; Immature Granulocytes Absolute 0.34 #; Lymphocytes # 0.3 10*3/uL (1.4-4.0); Lymphocytes % 3.3 % (21.2-54.2); Mean Corpuscular HGB Conc 32.8 GM/DL (32-36); Mean Platelet Volume 12.2 FL (9.6-12.0); Monocytes % 5.4 % (1.7-12.7); Platelet Count 100 T/CUMM (130-400); Red Blood Count 2.93 MC/CUMM (3.8-5.5); White Blood Count 8.3 T/CUMM (4-12)
[2021-06-15 05:45] LABS: Calcium 8.1 MG/DL (8.5-10.1); Osmolality,Calculated 281.4 MOS/KG (273-304); Potassium 5.5 MMOL/L (3.5-5.1)
[2021-06-15 06:00] LABS: Band Neutrophils 3 % (0-10); Hypochromia 1+; Lymphocytes 2 % (20-55); Nucleated Red Blood Cells 2 (0-5); Segmented Neutrophils 94 % (50-85); Total Cells Counted 100
[2021-06-15 06:01] LABS: Anisocytosis 1+; Microcytosis 1+; Platelet Estimate Decreased; Target Cells 1+
[2021-06-15] MEDS ORDERED: MIDODRINE 5 MG TABLET PO SCH (09:00)
[2021-06-15] MEDS: HEPARIN 5,000 UNIT/1 ML VIAL SUBCUT SCH (09:26)
[2021-06-15] MEDS: DOCUSATE SODIUM 100 MG CAPSULE PO SCH (09:34)
[2021-06-15] MEDS: PANTOPRAZOLE 40 MG TABLET PO SCH (09:36)
[2021-06-15] MEDS: ICOSAPENT ETHYL 1 GM PO SCH (09:37)
[2021-06-15] MEDS ORDERED: ALPRAZolam 0.25 MG TABLET PO PRN (13:58)
[2021-06-16] MEDS: ALBUTEROL 2.5 MG/3 ML NEB RESP TX SCH ×4 (00:50→19:40)
[2021-06-16 06:21] LABS: Basophils % 0.2 % (0.0-0.8); Hematocrit 29.2 VOL% (42.0-52.0); Hemoglobin 9.6 GM/DL (14.0-18.0); Immature Granulocytes % 2.3 %; Immature Granulocytes Absolute 0.19 #; Lymphocytes # 0.4 10*3/uL (1.4-4.0); Lymphocytes % 4.5 % (21.2-54.2); Mean Corpuscular HGB Conc 32.9 GM/DL (32-36); Mean Corpuscular Volume 100.7 FL (87-102); Mean Platelet Volume 12.5 FL (9.6-12.0); Monocytes % 5.9 % (1.7-12.7); NRBC # 0.08 10*3/uL; Neutrophils % 87.1 % (38.7-73.9); Platelet Count 107 T/CUMM (130-400); Red Cell Distribution Width 21.7 % (9.3-17.3); White Blood Count 8.2 T/CUMM (4-12)
[2021-06-16 06:22] LABS: Calcium 7.7 MG/DL (8.5-10.1); Osmolality,Calculated 287.2 MOS/KG (273-304)
[2021-06-16 06:27] LABS: Potassium 6.1 MMOL/L (3.5-5.1)
[2021-06-16 06:46] LABS: Eosinophils 1 % (0-10); Hypochromia Slight; Lymphocytes 8 % (20-55); Nucleated Red Blood Cells 2 (0-5); Platelet Estimate Adequate; Segmented Neutrophils 86 % (50-85); Total Cells Counted 100
[2021-06-16] MEDS: HEPARIN 5,000 UNIT/1 ML VIAL SUBCUT SCH ×3 (07:38→21:45)
[2021-06-16] MEDS: ICOSAPENT ETHYL 1 GM PO SCH ×3 (07:38→21:44)
[2021-06-16] MEDS: DOCUSATE SODIUM 100 MG CAPSULE PO SCH ×3 (07:38→21:45)
[2021-06-16] MEDS: PANTOPRAZOLE 40 MG TABLET PO SCH (09:01)
[2021-06-16] MEDS: MORPHINE 4 MG/1 ML VIAL IV PRN (14:08)
[2021-06-17] MEDS: ALBUTEROL 2.5 MG/3 ML NEB RESP TX SCH ×2 (00:40→07:30)
[2021-06-17] MEDS: MORPHINE 4 MG/1 ML VIAL IV PRN ×4 (08:47→22:07)
[2021-06-17] MEDS: DOCUSATE SODIUM 100 MG CAPSULE PO SCH (10:06)
[2021-06-17] MEDS ORDERED: LORazepam 2 MG/1 ML VIAL IV PRN (10:07)
[2021-06-17] MEDS: PANTOPRAZOLE 40 MG TABLET PO SCH (10:07)
[2021-06-17] MEDS: HEPARIN 5,000 UNIT/1 ML VIAL SUBCUT SCH (10:07)
[2021-06-17] MEDS ORDERED: oxyCODONE/ACETAMINOPHEN 5-325 MG TABLET PO PRN (10:23)
[2021-06-17] MEDS: ICOSAPENT ETHYL 1 GM PO SCH (19:14)
[2021-06-18] MEDS: MORPHINE 4 MG/1 ML VIAL IV PRN (08:15)
[2021-06-18] MEDS ORDERED: hydrOXYzine HCL 25 MG TABLET PO PRN (11:52)
[2021-06-19 08:22] VITALS: BP 89/48
[2021-06-19] MEDS ORDERED: MORPHINE 2 MG/1 ML SYRINGE IV PRN (14:23)
== END 2021-06-19 18:15 | disposition hospice, home (50) | DRG 291 ==
LOC: EDBD → EDUNIT# → N.TELEN 15:52 → N.ED 15:52 → SUATTDRO 20:54 → N.TELEN 23:29 → SUATTDRO 06-14 07:04
PROVIDERS: ADMIT Internal Medicine; ATTEND Internal Medicine Geriatric Medicine